=== PATIENT | male | born 1960 | race Caucasian/White ===

== ENCOUNTER → 2016-12-26 | Outpatient (CLI) | payer SELFPAY ==
[~2016-12-26] MED LIST: LEVAQUIN500 M2 PO; LEVOFLOXACIN500 MG PO; METOPROLOL SUCC50 M1 PO; METOPROLOL SUCC50 M2 PO; TRIMOX,POL250 MG/5 M PO
--- NOTE | ~2016-12-26 | PR ---
[place], [place] PROGRESS NOTE NAME: BRUNA BLANC [facility] #: [id number] UNIT #: [id number] ROOM: DOCTOR: ASTRID JefferyOLIVER BIRTHDATE: [birth year] DOS: 12/26/2016 CHIEF COMPLAINT: Bilateral leg ulcerations. HISTORY OF PRESENT ILLNESS: The location of the wounds are both of his legs, right lateral leg, right calf area as well as the left anterior leg and the left posterior leg, there is chronic erythema, chronic edema, likely venous insufficiency and probable diabetes, the wounds have been present since this summer. This patient does not have a primary care physician. Last week, he was noted to be quite hypertensive in the Wound Clinic. He was sent to the ER and apparently was asked to follow up with the primary care physician since then the patient still has not gotten to see a primary care physician. We had also wanted to order a CT angiogram of the lower extremities to evaluate for arterial insufficiency as his arterial ultrasounds were not able to be interpreted since there was too much edema. They did not visualize any of the arteries distal to the popliteal artery, so that has not been ordered yet either and we are waiting for that. He continues to have some drainage, but he still has some pain and discomfort. He is using the Tubigrip for edema control. He has had TheraHoney and he is using that. He offers no other specific complaints. He almost finished with a course of antibiotics for which he was on quinolone for bioburden. PHYSICAL EXAMINATION: VITAL SIGNS: Blood pressure is once again elevated at 180/90, pulse of 80, respirations 20, temperature 97.9. EXTREMITIES: The left lower leg wound is measuring 41 x 11 x 0.1. This is actually a circumferential measurement of small superficial clustered wounds. The wound actually is not nearly that size at all it is mostly confined to the calf. However, there is less edema overall it is slightly less erythema than before. The right lower extremity medial leg is measuring 0.6 x 1 x 0.1 and is smaller. The right lateral leg is measuring 10 x 4 x 0.2. There is still a fair amount of necrotic tissue and the wound base itself appears somewhat dry. The right posterior leg wound is measuring a little bit bigger at 5 x 5 x 0.2. Debridement was done of the right lateral leg and the right posterior leg. This is a selective debridement only as well as the left lower leg wound on the calf; however, the tissue removed was just necrotic, fibrin and slough. The patient does not tolerate debridement very well, so the debridement was aborted. ASSESSMENT AND PLAN: Chronic ulcerations, likely secondary to venous insufficiency and diabetes. He does have quite a bit of edema. We still don't have a clear idea what his vascular status is so we will go ahead and try to get that and CT angiogram ordered as soon as possible. Hopefully, then we will be able to know if we can compress him fully. I think this is definitely what he needs. If possible, he is probably diabetic; he needs to follow up with the primary care physician. He still has not made an appointment so we will have to reiterate to the patient. We did reiterate to the patient how important it is to get his blood pressure under control and to check his sugars and to have that managed because those are an integral part of wound management. In the meantime, we will use doxycycline for its anti-inflammatory purposes. The wounds appear a little bit on the dry side in general, so we will add hydrogel [place], [place] PROGRESS NOTE NAME: [facility]ANC [facility]: [id number] UNIT #: [id number] ROOM: DOCTOR: OLIVER RESENDIZ M.D. BIRTHDATE: [birth year] to help with autolytic debridement and continue with TheraHoney. The patient is to change the dressings daily and to follow up in one week. OLIVER RESENDIZ MD CM:ANDI [id number] OLIVER RESENDIZ M.D. 12/27/16 0815 interface
== END | disposition home or self-care (01) ==
LOC: WOUNDCARE 03:10
DX: I87.2 Venous insufficiency (chronic) (peripheral) (principal); L97.812 Non-pressure chronic ulcer of other part of right lower leg with fat layer exposed; L97.821 Non-pressure chronic ulcer of other part of left lower leg limited to breakdown of skin; E66.9 Obesity, unspecified

== ENCOUNTER → 2017-01-01 | Outpatient (CLI) | payer SELFPAY | END | disposition home or self-care (01) | LOC: CT 08:11 | DX: S81.802A Unspecified open wound, left lower leg, initial encounter (principal); I73.9 Peripheral vascular disease, unspecified; S81.801A Unspecified open wound, right lower leg, initial encounter; X58.XXXA Exposure to other specified factors, initial encounter; Y93.89 Activity, other specified; Y92.89 Other specified places as the place of occurrence of the external cause; Y99.8 Other external cause status; L03.116 Cellulitis of left lower limb; L03.115 Cellulitis of right lower limb ==

== ENCOUNTER → 2017-01-02 | Outpatient (CLI) | payer SELFPAY ==
--- NOTE | ~2017-01-02 | PR ---
[place], [place] PROGRESS NOTE NAME: BRUNA BLANC [facility] #: [id number] UNIT #: [id number] ROOM: DOCTOR: ASTRID JefferyOLIVER BIRTHDATE: [birth year] DOS: 01/02/2017 CHIEF COMPLAINT: Bilateral leg ulcerations. HISTORY OF PRESENT ILLNESS: The location of the wounds is both of his lower extremities, right lateral right calf area as well as a few on the right anterior leg as well. There are wounds on the left lower leg that include multiple scattered areas on the left anterior leg as well as the left calf area. There likely venous ulcers with probable diabetes associated with chronic edema and erythema. These wounds have been present since this summer. If this patient does not have a primary care physician and he does not have a way of obtaining dressings as he does not have any insurance, so the dressings that we have recommended he is unable to obtain. He was able to use some of the honey; however, he did run out of it. He comes in today without any dressings on his wounds at all. He did have his CT angiogram yesterday morning; however, we still do not have the results of this. He continues to have discomfort and pain associated with this wounds that continue to drain, but not as much drainage on the right leg. The left leg seems to be continuing to drain quite a bit. He is using Tubigrip at home for edema control and he is tolerating the oral doxycycline that we have prescribed. PHYSICAL EXAMINATION: VITAL SIGNS: Blood pressure is 160/90, pulse of 80, respirations 20, temperature 98.1. The left lower leg wound is measuring 19 x 23.1 x 0.1. This is a scattered cluster of ulcerations with no significant change in the wound appearance at this time. The right medial lower leg is measuring 1.6 x 2.3 x 0.1. There is some fibrin slough present in the base of the wound. The lateral leg wound of the right side is measuring slightly bigger at 10.3 x 6.4 x 0.2. There is a fair amount of necrotic tissue present. The posterior leg wound of the right lower leg is measuring 5 x 5.4 x 0.2, those measurements are bigger. The right lower leg midline wound is 2 x 1.7 x 0.1. This seems to be a new wound. Debridement was done of the calf wound, the lateral leg wound, right lateral leg wound and the anterior leg wound. The tissue removed was fibrin, slough and subcutaneous tissues. There was a moderate amount of bleeding that was controlled with pressure. The patient tolerated the debridement well. Cetacaine spray was used for topical anesthesia. Timeout was conducted prior to start of the procedure and the wound measurements did not change post-change, post-debridement. A swab culture was obtained of the right lateral leg wound as well since the measurements are slightly bigger. ASSESSMENT AND PLAN: Venous leg ulcerations as well as diabetic wounds. He continues to have a lot of edema. We have not been able to use a full compression bandage as we still have not had a clear idea of his vascular status. CT angiogram has been done but the report is still pending. For today, we will use manuka honey absorptive dressing that we have samples of which we can give the patient so he can use this at home as he does not have dressings and does not have a way of obtaining any dressings due to insurance purposes. He can use this in the meantime and hopefully we will be able to wrap his leg in a compression bandage early next week after we obtain the results. The culture was obtained today secondary to the wound measurements being slightly bigger. [place], [place] PROGRESS NOTE NAME: GUANACOBRUNA [facility] UNIT #: [id number] ROOM: DOCTOR: OLIVER RESENDIZ M.D. BIRTHDATE: [birth year] The overall erythema that was present when he first presented seems improved in general. His blood pressure remains uncontrolled. He is likely diabetic and will need to have this addressed when he visits his primary care doctor, so he still has not had an appointment and hopefully we will be able to get an appointment as soon as possible with the PCP. Followup is in one week. OLIVER RESENDIZ MD CM:ANDI [phone] OLIVER RESENDIZ M.D. 01/02/17 1158 interface
== END ==
LOC: WOUNDCARE 03:07
DX: E11.622 Type 2 diabetes mellitus with other skin ulcer (principal); I87.2 Venous insufficiency (chronic) (peripheral); L97.812 Non-pressure chronic ulcer of other part of right lower leg with fat layer exposed; L97.821 Non-pressure chronic ulcer of other part of left lower leg limited to breakdown of skin; E66.9 Obesity, unspecified

== ENCOUNTER → 2017-01-07 | Outpatient (CLI) | payer SELFPAY ==
--- NOTE | ~2017-01-07 | PR ---
[place], [place] PROGRESS NOTE NAME: BRUNA BLANC [facility] #: [id number] UNIT #: [id number] ROOM: DOCTOR: ASTRID JefferyOLIVER BIRTHDATE: [birth year] DOS: 01/07/2017 CHIEF COMPLAINT: The patient is here for a chief complaint of bilateral leg ulcerations. HISTORY OF PRESENT ILLNESS: The location of the wounds are the bilateral lower extremities, mostly in the right lateral calf area, left calf area and multiple ulcerations of the anterior legs bilaterally. They are venous in nature and also probably complicated by diabetes. The patient is not officially diagnosed with diabetes. He has not been to primary care physician. He is still awaiting to go and be evaluated. He has an appointment today for primary care. He was using honey to help with the wounds and then he did have a CT angiogram, which showed no significant peripheral vascular disease. He comes in today for followup routine appointment. No specific complaints. He thinks overall the drainage is slightly less. He has completed his antibiotic course. He had a recent culture which was negative. OBJECTIVE: VITAL SIGNS: As follows: Blood pressure is uncontrolled again at 180/100, pulse of 84, respirations 20, temperature 98.2. WOUND EXAM: The wounds on the left lower extremity is measuring 19 x 23 x 0.1, which actually includes multiple superficial wounds of the anterior leg as well; however, the area in the posterior calf of the left leg is looking filter cleaner in general. The wound on the anterior right lower leg is measuring slightly smaller at 1.7, x 1.6 x 0.1. There is some adherent fibrin slough present. The wound on the right lateral calf is measuring 10.2 x 4.3 x 0.2. There is still a fairly large amount of necrotic tissue present. Fibrin slough is somewhat dry at this time. The wound of the posterior calf area is measuring slightly longer at 8 x 5.2 x 0.2, it is actually a cluster of multiple wounds, so initially a lot of these areas when he first presented were covered with necrotic tissue, and now they are still have some necrotic tissue present, but they are obviously open. There is another wound on the right middle leg anteriorly, which is measuring 1 x 1.4 x 0.1. There is some fibrin slough present. Debridement was done of the right lateral wound, the right calf wound, 2 anterior wounds on the right lower extremity. Tissue removed was fibrin, slough and subcutaneous tissue. There was moderate amount of bleeding that was controlled with pressure. The patient tolerated the debridement well. Post-debridement measurements are unchanged. Cetacaine spray was used for topical anesthesia. Timeout was conducted prior to the start of the procedure. A new curette was used for the left lower extremity. In addition, I did use forceps and scissors as well. For the left lower extremity, the only wound that was debrided was the calf wound. Instrument used was a curette. Fibrin slough and subcutaneous tissue was removed and there was moderate amount of bleeding that was controlled with pressure. Post-debridement measurements are unchanged. ASSESSMENT AND PLAN: Venous stasis ulceration, we will go ahead and use Unna boots for him now that we always have a good sense of his vascular status. He is going to come back in 2 days for nursing visit to reevaluate. We are going to use Adaptic and Maxorb silver to help with antimicrobial purposes. I would like to use Santyl on this patient. He does not have insurance, so I am not [place], [place] PROGRESS [id number] UNIT #: [id number] ROOM: DOCTOR: OLIVER RESENDIZ M.D. BIRTHDATE: [birth year] sure how expensive this will be, but ideally he would benefit from this. A script was written for him. He also needs to get his blood pressure under control. He is going to follow up with his primary care physician, so hopefully that will help with some of his comorbidities. He is also has to have his sugar addressed as well. Follow up in the Wound Clinic in 2 days for nursing visit and in 1 week for wound care visit. OLIVER RESENDIZ MD CM:ANDI [phone] OLIVER RESENDIZ M.D. 01/07/178 interface
== END | disposition home or self-care (01) ==
LOC: RESCLI 04:41
DX: Z12.11 Encounter for screening for malignant neoplasm of colon (principal); I10 Essential (primary) hypertension; L03.115 Cellulitis of right lower limb; L03.116 Cellulitis of left lower limb; E66.01 Morbid (severe) obesity due to excess calories

== ENCOUNTER → 2017-01-09 | Outpatient (CLI) | payer SELFPAY | LOC: WOUNDCARE 01:29 | DX: I87.2 Venous insufficiency (chronic) (peripheral) (principal); L97.812 Non-pressure chronic ulcer of other part of right lower leg with fat layer exposed; L97.821 Non-pressure chronic ulcer of other part of left lower leg limited to breakdown of skin; E66.9 Obesity, unspecified ==

== ENCOUNTER → 2017-01-14 | Outpatient (CLI) | payer SELFPAY ==
--- NOTE | ~2017-01-14 | PR ---
[place], [place] PROGRESS NOTE NAME: BRUNA BLANC [facility] #: [id number] UNIT #: [id number] ROOM: DOCTOR: ASTRID JefferyOLIVER BIRTHDATE: [birth year] DOS: 01/14/2017 CHIEF COMPLAINT: Bilateral leg ulcerations. HISTORY OF PRESENT ILLNESS: The location of the wounds are the bilateral lower extremities, mostly in the calf and lateral areas of the legs. They are venous in nature and complicated by diabetes, although has not been officially diagnosed yet. He has had these wounds since this summer and has just started to compression therapy. He does complain of some breakthrough drainage coming from the wraps, still has some pain, but overall no other specific complaints. No fevers or chills. He was able to go to the primary care, was started on lisinopril and has followup appointment scheduled for testing and has a followup appointment with his primary care again coming up soon. OBJECTIVE: VITAL SIGNS: As follows: Blood pressure is still elevated at 170/90, pulse of 88, respirations 20, temperature is 97.6. EXTREMITIES: The wounds on the left lower leg, which were mostly scattered in the anterior surface are smaller. It was a cluster of wounds and these were just measured at 8.5 x 5.5 x 0.2. They are fairly superficial, a lot of them have some dried scabbed areas over these areas. There is another wound measuring smaller on the right medial leg, which is measuring 0.3 x 0.2 x 0.1. There is some adherent slough present. The large wound on the right lateral leg is measuring 9.3 x 5.5, but the overall appearance of the wound is definitely improving from before. The posterior calf wound is measuring 8 x 5.5 x 0.2, and is looking improved as well even though the measurements do not indicate that, the overall appearance of the wound is definitely improved. There is some maceration noted around the periwound, mostly of the left calf area. The wound on the right midline leg is measuring 0.4 x 0.9 x 0.1. A debridement was done of the right lateral leg, right calf wound and left calf wound. This is a debridement to remove fibrin, slough and subcutaneous tissue. There was a moderate amount of bleeding that was controlled with pressure. Also, of note was there was a new blister formation on the left lateral leg, which seems to be where some of the edema accumulated. It is filled with serous fluid. This was drained of serous fluid, overlying skin was left over the wound, but the fluid was drained from the area. Overall, edema is still pretty marked and present. He also has improved erythema as well. ASSESSMENT AND PLAN: Venous stasis ulcerations complicated by diabetes. Overall, the wounds look better with the wraps and I would like to continue them; however, I would like to switch from the Unna boot to the 3-layer wrap. As he did have some blister formation on the left leg I'd like to see if a 3-layer wrap will prevent this from happening. I did advise him to make sure he keeps his legs up during the day when he has breaks as much as possible. We will use the same dressing alginate silver with OptiLock to help with the maceration and have him come back for a nursing visit for wrap change later this week on . [place], [place] PROGRESS NOTE [facility]: [id number] UNIT #: [id number] ROOM: DOCTOR: OLIVER RESENDIZ M.D. BIRTHDATE: [birth year] OLIVER RESENDIZ MD CM:PNTRANS [id number] OLIVER RESENDIZ M.D. 01/15/17 1511 interface
== END ==
LOC: WOUNDCARE 03:12
DX: E11.622 Type 2 diabetes mellitus with other skin ulcer (principal); I87.2 Venous insufficiency (chronic) (peripheral); L97.812 Non-pressure chronic ulcer of other part of right lower leg with fat layer exposed; L97.821 Non-pressure chronic ulcer of other part of left lower leg limited to breakdown of skin; E66.9 Obesity, unspecified

== ENCOUNTER → 2017-01-17 | Outpatient (CLI) | payer SELFPAY | LOC: WOUNDCARE 02:41 | DX: I87.2 Venous insufficiency (chronic) (peripheral) (principal); L97.812 Non-pressure chronic ulcer of other part of right lower leg with fat layer exposed; L97.821 Non-pressure chronic ulcer of other part of left lower leg limited to breakdown of skin; E66.9 Obesity, unspecified ==

== ENCOUNTER → 2017-01-21 | Outpatient (CLI) | payer SELFPAY ==
--- NOTE | ~2017-01-21 | PR ---
[place], [place] PROGRESS NOTE NAME: BRUNA BLANC [facility] #: [id number] UNIT #: [id number] ROOM: DOCTOR: ASTRID JefferyOLIVER BIRTHDATE: [birth year] DOS: 01/21/2017 CHIEF COMPLAINT: Bilateral leg ulcerations. HISTORY OF PRESENT ILLNESS: The location of the wounds is the bilateral lower extremities mostly in the calf and lateral areas of the legs. They are venous in nature, complicated by diabetes. He has not been officially diagnosed yet. He has not had a primary care physician until just recently. We have been wrapping him in 3-layer wraps and he has been tolerating them fairly well. He has no specific complaints. He does get occasional pain and discomfort but overall the pain is much improved. PHYSICAL EXAMINATION: VITAL SIGNS: As follows: Blood pressure is still elevated at 180/96, pulse of 88, respirations 20, temperature is 99.1. WOUND EXAMINATION: The wound on the left lower leg calf area is definitely improving and it is still measuring large 7.7 x 3.2 x 0.2, but overall has improved quite a bit. There is quite a bit of epithelialization. There is still some slight maceration on the periwound area. Overall, much less necrotic tissue present and it looks good. The wound #2 is essentially healed, 0.1 x 0.1 x 0.1. Wound #3 is measuring smaller at 9 x 3.8 x 0.2 and it is definitely improved and the width is quite a bit. There is minimal fibrin slough present. Overall, there is no cellulitis. The wound on the posterior calf is measuring 8 x 5.5 x 0.2, but it is definitely improving. There is a lot of epithelialization within that wound. There is minimal fibrin and slough present. Wound #5 is also appearing healed at 0.1 x 0.1 x 0.1. A debridement was done of the right leg wounds, the right calf and the right lateral leg wound, the larger wound. This was accomplished with a curette. Tissue removed was fibrin, slough and subcutaneous tissue. There was a moderate amount of bleeding that was controlled with pressure. The patient tolerated debridement well. Post-debridement measurements are unchanged. Cetacaine spray was used for topical anesthesia. ASSESSMENT AND PLAN: Venous stasis ulcerations complicated by diabetes. He has been definitely improving with compression therapy. We will use the same dressing as before, which is Adaptic, Maxorb, OptiLock and a 3-layer wrap. He will take the dressing off in 4 days and we will do the dressing at home. He will use Adaptic, 4 x 4s and Nasreen for the left leg and Tubigrip for edema control and for the right leg a sample of nonadherent Silvercel was given that should cover all the wound bases for him and some 4 x 4s and Nasreen and Tubigrip. He is going to use that dressing at home, but I would like him to keep the same dressing that we have been using at least for 4 days if possible for now as he does seem to be responding. Unfortunately, we are unable to bring him in for a nursing visit later this week due to staffing issues so the patient will follow up next week with me in the Wound Clinic. [place], [place] PROGRESS NOTE NAME: GUANACOBRUNA UNIT #: [id number] ROOM: DOCTOR: OLIVER RESENDIZ M.D. BIRTHDATE: [birth year] OLIVER RESENDIZ MD CM:ANDI [id number] OLIVER RESENDIZ M.D. 01/22/17 0603 interface
== END ==
LOC: WOUNDCARE 02:09
DX: E11.622 Type 2 diabetes mellitus with other skin ulcer (principal); I87.2 Venous insufficiency (chronic) (peripheral); L97.812 Non-pressure chronic ulcer of other part of right lower leg with fat layer exposed; L97.821 Non-pressure chronic ulcer of other part of left lower leg limited to breakdown of skin; E66.9 Obesity, unspecified

== ENCOUNTER → 2017-01-21 | Outpatient (CLI) | payer SELFPAY ==
[2017-01-21 09:46] LABS: BASO # 0.1 10*3/uL (0.0-0.1); BASO % 0.7 % (0.0-1.0); EOS # 0.3 10*3/uL (0.0-0.4); EOS % 3.1 % (1.0-4.0); HEMATOCRIT 46.7 % (42.0-52.0); HEMOGLOBIN 15.2 g/dl (14.0-18.0); LYMPH # 1.6 10*3/uL (1.3-4.4); LYMPH % 19.5 % (27.0-41.0); MEAN CELL VOLUME 84.8 fl (80.0-94.0); MEAN CORPUSCULAR HGB 27.6 pg (27.0-31.0); MEAN CORPUSCULAR HGB CONC 32.5 g/dl (33.0-37.0); MEAN PLATELET VOLUME 9.6 fl (9.6-12.3); MONO # 0.5 10*3/uL (0.1-1.0); NEUT # 5.7 10*3/uL (2.3-7.9); NEUT % 70.3 % (47.0-73.0); PLATELET COUNT AUTOMATED 219 10*3/uL (130-400); RED BLOOD COUNT 5.51 10*6/uL (4.50-5.90); RED CELL DISTRI WIDTH 13.5 % (0-14.5)
[2017-01-21 10:15] LABS: HEMOGLOBIN A1c 6.5 % (4.8-5.6)
[2017-01-21 10:29] LABS: ALBUMIN 3.2 gm/dl (3.1-4.5); ALKALINE PHOSPHATASE 78 U/L (45-117); BILIRUBIN, TOTAL 0.3 mg/dl (0.2-1.0); BUN 15 mg/dl (7-24); CARBON DIOXIDE 29 mmol/L (21-32); CHLORIDE 104 mmol/L (98-107); CHOLESTEROL 133 mg/dL (<200); EST GLOM FILT AFRICAN AMERICAN > 60 ml/min; GLUCOSE 105 mg/dL (65-99); HDL CHOLESTEROL 44 mg/dl (40-60); LDL CHOLESTEROL 62 mg/dL (9-159); SGOT/AST 25 IU/L (3-35); SGPT/ALT 32 U/L (12-78); SODIUM 139 mmol/L (136-145); TOTAL PROTEIN 7.5 gm/dL (6.4-8.2); TRIGLYCERIDES 134 mg/dl (<150); VLDL CHOLESTEROL 27 mg/dL (6-40)
== END | disposition home or self-care (01) ==
LOC: CARD 09:30 → LAB 09:31
PROVIDERS: Internal Medicine
DX: Z12.5 Encounter for screening for malignant neoplasm of prostate (principal); I10 Essential (primary) hypertension; E66.01 Morbid (severe) obesity due to excess calories

== ENCOUNTER → 2017-01-28 | Outpatient (CLI) | payer SELFPAY ==
[~2017-01-28] MED LIST changes: +LISINOPRIL20 MG PO; +MOTRIN IB200 M1 PO
== END | disposition home or self-care (01) ==
LOC: RESCLI 02:49
DX: I10 Essential (primary) hypertension (principal); E66.01 Morbid (severe) obesity due to excess calories; R73.09 Other abnormal glucose; E83.51 Hypocalcemia; L03.119 Cellulitis of unspecified part of limb; Z68.42 Body mass index [BMI] 45.0-49.9, adult

== ENCOUNTER → 2017-01-31 | Outpatient (CLI) | payer SELFPAY ==
--- NOTE | ~2017-01-31 | PR ---
[place], [place] PROGRESS NOTE NAME: BRUNA BLANC [facility] #: [id number] UNIT #: [id number] ROOM: DOCTOR: ASTRID JefferyOLIVER BIRTHDATE: [birth year] DOS: 01/31/2017 CHIEF COMPLAINT: Bilateral leg ulcerations. HISTORY OF PRESENT ILLNESS: The locations of the wounds are bilateral lower extremities, mostly in the calf area and lateral areas of the legs. They are venous in nature, complicated by probable early diabetes, which has not been officially diagnosed yet. He has uncontrolled hypertension, which has been chronic and ongoing. He states he was started on some new medications for his blood pressure and his blood pressure has been uncontrolled. He will be starting the new medication later this week on Saturday. He was seen last week and I was quite pleased with the way his wounds were looking. They were definitely improving and getting smaller. Edema was improving with the wrap. We did a 3-layer wrap on him again and he was to take it off at home and put dressings on at home; however, he says he ran out dressings. He said when he took the wraps off, he had noticed some blistering on his legs and his wound got bigger, more painful. They are not draining an excessive amount, but they are definitely uncomfortable and with a burning, stinging sensation. He has no fevers or chills and is currently not on any antibiotics. PHYSICAL EXAMINATION: VITAL SIGNS: His temperature is 98.2, pulse of 94, respirations 20, blood pressure is 188/108. EXTREMITIES: The wounds are measuring bigger. Unfortunately, the wound on the left leg calf area is measuring 12.5 x 6 x 0.1. There are new areas of breakdown. It looks somewhat dry. There is some adherent slough and necrotic tissue present. The wound on the right medial leg remains healed at 0.1 x 0.1 x 0.1. The wound on the right lateral leg is measuring 8 x 4 x 0.2. There is a large amount of fibrin slough present dry, a very dry. The wound on the right posterior area is large again at 15 x 7.5 x 0.2. The patient refused for me to do any debridement today. He says it is too tender and painful. I was able to get a swab culture of one of the wounds. We will send it for culture. A repeat blood pressure check was done, was 188/96. ASSESSMENT AND PLAN: Chronic venous stasis ulcerations, which are worse now. Edema is uncontrolled. The wounds were doing quite well. The last time I saw him, he is out of dressings. He has not been putting anything on the wounds at this time. They are dry with necrotic tissue. I ideally would like to use Santyl on them; however, he is unable to get this. We will go back to [place] and start back with that as a debrider. Culture was taken. We will put him on empiric antibiotics. There does not appear to be overt cellulitis. He has chronic erythema, but with this complaints of increased pain, I would like to go ahead and treat this with an antibiotic to hopefully prevent this from getting worse. We will use Honey 4 x 4s, Kerlix, and Coban for compression, hopefully we will be able to get this stabilized and get him into another compression wrap soon, which is really what seem to be helping him and that is what he was responding well to. His blood pressure remained uncontrolled. I spoke with the resident, Dr. West, and the patient is asymptomatic at this time from hypertension. He has had ongoing blood pressure issue since he is first started at the clinic. He is going to be changing to a [place], [place] PROGRESS NOTE NAME: BRUNA BLANC [facility] #: [id number] UNIT #: [id number] ROOM: DOCTOR: OLIVER RESENDIZ M.D. BIRTHDATE: [birth year] new medicine soon and I did inform the resident about this and his suggestion was as long as he is asymptomatic, just to continue with the current plan. I would like the patient to see me on Saturday again to further evaluate his legs and to see how he is responding. OLIVER RESENDIZ MD CM:PNTRANS [phone] OLIVER RESENDIZ M.D. 02/01/17 1129 interface
== END ==
LOC: WOUNDCARE 01:28
DX: I87.2 Venous insufficiency (chronic) (peripheral) (principal); L97.812 Non-pressure chronic ulcer of other part of right lower leg with fat layer exposed; L97.822 Non-pressure chronic ulcer of other part of left lower leg with fat layer exposed; E66.9 Obesity, unspecified; I10 Essential (primary) hypertension

== ENCOUNTER → 2017-02-01 | Day surgery (SDC) | payer SELFPAY ==
[~2017-02-01] VITALS: Ht 185.4 cm; Wt 129.3 kg
--- NOTE | ~2017-02-01 | PROC NOTE ---
[place], [place] PROCEDURE NOTE NAME: BRUNA BLANC [facility] #: [id number] UNIT #: [id number] ROOM: DOCTOR: ED RIOS MD BIRTHDATE: [birth year] DATE: 02/01/17 PREOPERATIVE DIAGNOSIS: Screening examination. POSTOPERATIVE DIAGNOSIS: Screening examination. PROCEDURE: Colonoscopy. ENDOSCOPIST: Ed Rios MD. ADMISSIONS EVALUATOR: PGY1. ANESTHESIA: MAC. INDICATIONS: This is a 57-year-old gentleman who is here for a screening examination. The procedure and its complications explained to the patient in detail preoperatively. Complications that were discussed included but were not limited to bleeding, missed lesions, and colon perforation. He agreed to proceed. DESCRIPTION OF PROCEDURE: After identifying the patient, the patient was brought to the endoscopy suite and laid in the left lateral position. After a time-out procedure was called, IV sedation was administered and a digital rectal exam was performed. This was within normal limits. An adult colonoscope was now introduced into the anal canal and advanced sequentially into the rectum, sigmoid colon, descending colon, transverse colon, and ascending colon up to the cecum. Upon reaching the cecum, the scope was withdrawn. Total withdrawal time was approximately 6-1/2 minutes. There were no obvious lesions that were identified. Upon retroflexion of the scope in the rectum, there was found to be internal hemorrhoids, which were not complicated. After the scope was withdrawn, the patient was taken to the recovery room in a stable fashion. There were no complications. Dr. Ed Rios, the attending endoscopist, was present throughout the operating case. Based on these findings, the patient is recommended to have another colonoscopy in 10 years or sooner if he develops any new symptoms. These findings will be discussed with the patient when he sees me in my office in 2 weeks. ED RIOS MD CM:PROCNOTE:PROCEDURE NOTE [id number] ED RIOS MD
[2017-02-01 07:00] VITALS: BP 170/100
[2017-02-01 07:50] VITALS: BP 153/75
[2017-02-01 08:04] VITALS: BP 156/85
[2017-02-01 08:17] VITALS: BP 153/79
== END | disposition home or self-care (01) ==
LOC: SDC 01-28 10:15
DX: Z12.11 Encounter for screening for malignant neoplasm of colon (principal); K64.8 Other hemorrhoids; I10 Essential (primary) hypertension; Z87.891 Personal history of nicotine dependence; Z83.3 Family history of diabetes mellitus; Z82.49 Family history of ischemic heart disease and other diseases of the circulatory system; Z80.9 Family history of malignant neoplasm, unspecified; Z98.890 Other specified postprocedural states

== ENCOUNTER → 2017-02-04 | Outpatient (CLI) | payer SELFPAY ==
--- NOTE | ~2017-02-04 | PR ---
[place], [place] PROGRESS NOTE NAME: [facility]UNA BLANC [facility] #: [id number] UNIT #: [id number] ROOM: DOCTOR: ASTRID JefferyOLIVER BIRTHDATE: [birth year] DOS: 02/04/2017 CHIEF COMPLAINT: Bilateral leg ulcerations. HISTORY OF PRESENT ILLNESS: The location of the wounds of the bilateral lower extremities, mostly in the calf areas and the lateral areas of the legs. They are venous in nature, complicated by early diabetes, which is diet controlled, chronic leg edema and contributing factors are unable to keep the wounds covered with dressings as the patient is unable to afford dressings and he keep his wounds open to air when he runs out of dressings which is quite frequently. He was seen last week and at that time, he had increased pain, redness, and discomfort with the wounds draining and had difficulty tolerating any debridement. TheraHoney was prescribed. Cultures were taken, growing Staph aureus moderate amount susceptible to quinolones and the patient is on quinolone which was prescribed last week. He is tolerating the antibiotics well without any specific complaints. He came in today without a dressing, wounds were open and dry. OBJECTIVE: VITAL SIGNS: Temp 97.8, pulse of 96, respirations 20, blood pressure is 164/110. He has had uncontrolled hypertension for quite some time now and has started a new blood pressure medication. His wound on the left lower extremity is measuring 16 x 6 x 0.1. It is a cluster of multiple wounds now, which is mostly located on the back side of the calf. There are fairly dry and starting to scab over at this time. Wound #2 is located on the anterior leg it is measuring 1.1 x 1.1 x 0.1, it does not appear open. The wound on the right calf area and lateral side of the leg is measuring 16 x 10 x 0.1; however, these measurements are including several areas around that and it is a large cluster of wounds. There is a fair amount of dried adherent slough present in the base of the wound. The edema seems stable. The redness is chronic, but improved from last time I saw him. There is no purulence at this time. Debridement was done of the larger wound on the right calf area. Cetacaine spray was used for topical anesthesia. Timeout was conducted prior to the start of the procedure. Curette, forceps and scissors were utilized to remove fibrin, slough and subcutaneous tissue. There was a moderate amount of bleeding. Post-debridement measurements are unchanged. Bleeding was controlled with pressure. The patient tolerated the procedure well. ASSESSMENT AND PLAN: Chronic venous ulcerations which have worsened recently as the patient had taken off the wraps and kept the wounds open and dry without any dressing material. He was started on antibiotics empirically. This seems to have stabilized a lot of the pain and redness associated with the wounds, it does appear stable today. He continues to have a fair amount of adherent dried slough on the wound base, we will continue with TheraHoney use Adaptic secondary to prevent sticking of the dressings to the wound and a 3-layer wrap have the patient come back on for a wrap change. He is going to try and elevate his legs as much as possible. His blood pressure remains uncontrolled. We will recheck it today before he leaves. He was started on a new medication. This Saturday was the first time he started taking it and he will follow up with his PCP 02/11/2017. [place], [place] PROGRESS NOTE NAME: [facility]NA[facility]UNA [facility] UNIT #: [id number] ROOM: DOCTOR: OLIVER RESENDIZ M.D. BIRTHDATE: [birth year] OLIVER RESENDIZ MD CM:ANDI [id number] OLIVER RESENDIZ M.D. 02/04/17 1026 interface
== END ==
LOC: WOUNDCARE 02:05
DX: I87.2 Venous insufficiency (chronic) (peripheral) (principal); E11.622 Type 2 diabetes mellitus with other skin ulcer; L97.812 Non-pressure chronic ulcer of other part of right lower leg with fat layer exposed; L97.822 Non-pressure chronic ulcer of other part of left lower leg with fat layer exposed; E66.9 Obesity, unspecified; I10 Essential (primary) hypertension

== ENCOUNTER → 2017-02-07 | Outpatient (CLI) | payer SELFPAY | LOC: WOUNDCARE 02:43 | DX: I87.2 Venous insufficiency (chronic) (peripheral) (principal); L97.812 Non-pressure chronic ulcer of other part of right lower leg with fat layer exposed; L97.821 Non-pressure chronic ulcer of other part of left lower leg limited to breakdown of skin; E66.9 Obesity, unspecified ==

== ENCOUNTER → 2017-02-11 | Outpatient (CLI) | payer SELFPAY | END | disposition home or self-care (01) | LOC: RESCLI 00:41 | DX: E11.9 Type 2 diabetes mellitus without complications (principal); I10 Essential (primary) hypertension; E66.01 Morbid (severe) obesity due to excess calories; I87.2 Venous insufficiency (chronic) (peripheral) ==

== ENCOUNTER → 2017-02-11 | Outpatient (CLI) | payer SELFPAY ==
--- NOTE | ~2017-02-11 | PR ---
[place], [place] PROGRESS NOTE NAME: BRUNA BLANC [facility] #: [id number] UNIT #: [id number] ROOM: DOCTOR: ASTRID JefferyOLIVER BIRTHDATE: [birth year] DOS: 02/11/2017 CHIEF COMPLAINT: Bilateral leg ulcerations. HISTORY OF PRESENT ILLNESS: The location of the wounds are the bilateral lower extremities, mostly in the calf and lateral areas of the legs. They are venous in nature, complicated by early diabetes, which at this point is diet controlled; chronic leg edema, previous contributing factors are the patient was unable to afford dressings and despite recommendations to keep them covered, he left them opened to air on multiple occasions. The wounds were quite large and chronic and have been present since the summer time. He was kept on TheraHoney for a while to help debride the wounds and he has been tolerating compression therapy without any new specific complaints. He is going to see his primary care doctor for further blood pressure management. His blood pressure remains elevated. PHYSICAL EXAMINATION: VITAL SIGNS: Today shows temp of 98.4, pulse of 98, respirations 20, blood pressure is 164/98. WOUND EXAMINATION: The wraps were removed. The wounds are measuring 15 x 9 x 0.1 that is actually a clustered area of wounds. Several of the wounds have dried, necrotic hyperkeratotic tissue around them, so the actual measurements of open areas are not known. Those are the areas of where the wounds were, but lot of that is actually crusted over with hyperkeratotic tissue. Wound #2 has healed 0.1 x 0.1 x 0.1 on the right leg and then there is a wound #3 which is located on the right calf and is measuring about the same at 15 x 10 x 0.1, but with those measurements there is quite a bit of epithelialization scattered throughout the clustered wound margin. The left leg was selectively debrided. The only tissue removed was nonviable hyperkeratotic tissue with forceps and scissors and a curette was also used to remove some fibrin slough on the anterior portion of the wound where there was [id number] amount of bleeding that was controlled with pressure. Post-debridement measurements are unchanged. The right lower extremity wound was removed. The tissue removed was nonviable hyperkeratotic tissue as well as subcutaneous tissue, fibrin and slough. There was moderate amount of bleeding that was controlled with pressure. Post-debridement measurements are unchanged. Edema is well controlled. Overall, there is no active cellulitis. ASSESSMENT AND PLAN: Chronic venous insufficiency. He continues to do well with the wraps. The wounds are improving in general, even though measurements may not signify this, there is a lot of epithelialization to those margins. Post-debridement measurements of the wound on the left leg was actually quite a bit smaller at 5.2 x 9 x 0.1 post-debridement measurements. We will continue compression management. We will use Adaptic and Maxorb, have him follow up in 3 days for a nursing visit and dressing change. He is to follow up with his primary care doctor for his uncontrolled hypertension. This is to be done today. [place], [place] PROGRESS NOTE NAME: GUANACOBRUNA [facility] #: [id number] UNIT #: [id number] ROOM: DOCTOR: OLIVER RESENDIZ M.D. BIRTHDATE: [birth year] OLIVER RESENDIZ MD CM:ANDI [id number] OLIVER RESENDIZ M.D. 02/12/17 020 interface
== END ==
LOC: WOUNDCARE 00:51
DX: I87.2 Venous insufficiency (chronic) (peripheral) (principal); E11.622 Type 2 diabetes mellitus with other skin ulcer; L97.812 Non-pressure chronic ulcer of other part of right lower leg with fat layer exposed; L97.821 Non-pressure chronic ulcer of other part of left lower leg limited to breakdown of skin; E66.9 Obesity, unspecified; I10 Essential (primary) hypertension

== ENCOUNTER → 2017-02-14 | Outpatient (CLI) | payer SELFPAY ==
--- NOTE | ~2017-02-14 | PR ---
[place], [place] PROGRESS NOTE NAME: BRUNA BLANC [facility] #: [id number] UNIT #: [id number] ROOM: DOCTOR: ASTRID JefferyOLIVER BIRTHDATE: [birth year] DOS: 02/14/2017 CHIEF COMPLAINT: Multiple chronic ulcers of the lower extremities. HISTORY OF PRESENT ILLNESS: This is a 57-year-old male with chronic ulcers of the legs since the summertime, who has been coming to the wound clinic now for 10 weeks. He has venous ulcerations and problems with severe edema. He has difficulty obtaining dressing materials in the past, which have worsened his wounds a great deal. He is now tolerating compression therapy with the wound steadily improving; however, he has had recurrent blistering underneath the wraps off and on with the compression therapy, but that seemed to heal fairly quickly once drained. They are filled with serous fluid, so that has been an ongoing recurrent problem, but otherwise he was coming in for a nursing visit today for compression bandage change; however, it was noted that he had blistering, fairly large blisters on the left leg that were new, so he was changed to a wound care visit and that is why I am seeing him. PHYSICAL EXAMINATION: His vital signs are stable. Temperature is 98.2, pulse of 90, respirations 20, blood pressure is 120/88. The wounds on the left leg are being measured as circumferential wound of 9.4 x 11 x 0.1; however, the actual wounds on the back of the calf that we were dealing with seemed to have healed with compression. They look very good. However, he has a few blisters, actually several blisters on the lateral side as well as the anterior legs that are filled with serum. A #15 blade was utilized to drain 2 to 3 of the blisters, they were not unroofed, they were just drained. The right lower leg wound is measuring 15 x 9.1 x 0.1 and looks really good in comparison to the last couple of weeks. It is definitely improving with therapy. The edema is much improved. The erythema is much improved, so we will continue with compression. He does have some slight maceration around the distal ankle area, but otherwise the wounds are looking very good. No debridement was done on the right leg. ASSESSMENT AND PLAN: Venous ulceration, which are responding to compression therapy very well. However, he does have some issues with recurrent blistering under the compression wraps. It is not clear to me why this is. If this is continued venous insufficiency that is leading up to the blisters or something from the wraps; however, I do not want to discontinue the wraps as the wounds are definitely improving with them. We will continue with compression therapy, Adaptic and Maxorb and have him follow back up on Saturday for a wound clinic visit. Also, we have been using a 3-layer wrap, but however, we do not have that available today, so we will go with the Unna boot instead. Perhaps, he will respond a little bit better with this rather than 3 layers. So, we will go ahead and do that and have him follow up next Saturday. [place], [place] PROGRESS NOTE NAME: GUANACOBRUNA UNIT #: [id number] ROOM: DOCTOR: OLIVER RESENDIZ M.D. BIRTHDATE: [birth year] OLIVER RESENDIZ MD CM:ANDI [id number] OLIVER RESENDIZ M.D. 02/15/17 0946 interface
== END ==
LOC: WOUNDCARE 02:42
DX: I87.2 Venous insufficiency (chronic) (peripheral) (principal); L97.812 Non-pressure chronic ulcer of other part of right lower leg with fat layer exposed; L97.821 Non-pressure chronic ulcer of other part of left lower leg limited to breakdown of skin; E66.9 Obesity, unspecified

== ENCOUNTER → 2017-02-18 | Outpatient (CLI) | payer SELFPAY ==
[~2017-02-18] MED LIST changes: +HYDROCHLOROTHIA25 M1 PO; +LISINOPRIL40 MG PO; +METFOMIN HYDRO850 MG PO; +METFORMIN500 MG PO; +VITAMIN D1000 IU PO
--- NOTE | ~2017-02-18 | PR ---
[place], [place] PROGRESS NOTE NAME: BRUNA BLANC [facility] #: [id number] UNIT #: [id number] ROOM: DOCTOR: ASTRID JefferyOLIVER BIRTHDATE: [birth year] DOS: 02/18/2017 CHIEF COMPLAINT: Followup of bilateral leg ulceration. HISTORY OF PRESENT ILLNESS: The location of the wounds of the bilateral lower extremities, mostly in the calf and lateral areas of the leg, they are venous in nature, complicated by diabetes, which he was just started on oral anti-hypoglycemic agents, chronic leg edema with problems in the past affording dressings, so he would leave the wounds open chronically and recurrently which would worsen the wounds quite significantly. He has been on Unna boots now. We had used a 3-layer wrap last week, but due to the presence of blistering underneath the wrap. We decided to go back to Unna boot, he had been on that before, did have problems with some blistering at that time too, which I suspect is likely from some of the edema being slightly unevenly distributed, but overall the appearance of his legs is definitely improved with Compression. He has no specific complaints. Vitals are stable. He is doing fairly well with compression at this time. OBJECTIVE: VITAL SIGNS: He is afebrile, pulse of 90, respirations 20; blood pressure is 130/84. EXTREMITIES: The left lower leg wound is definitely improved. The wounds on the calf are healed. He has had some blistering of the lateral and the anterior leg from the wraps which we are including in the measurements at this time, but it seems to have already epithelialized. So the measurements on the left leg are 8.5 x 11 x 0.1. Those include the blistering areas that were present last week, but they look stable and they already appear epithelialized the right lower leg wound. The only place that open is the lateral part right now and that is definitely improving and is measuring 7.1 x 2.2 x 0.1. There is some fibrin slough present in the base of the wound. A debridement was done today. The tissue removed was fibrin, slough and subcutaneous tissue. There was a moderate amount of bleeding that was controlled with pressure. Post-debridement measurements are unchanged. The patient tolerated the debridement well. A curette was utilized and Cetacaine spray was used for topical anesthesia. ASSESSMENT AND PLAN: Recurrent venous leg ulcers, which are improving in general. A great deal with compression therapy and wound care. We will continue with the current dressings which is the Maxorb silver Adaptic and Unna boots and have him follow back up on later or Saturday. We do need to see him twice a week at least as he has had problems with some blistering underneath the wraps. Otherwise, if that was not an issue. He could stay for a wrap with one week; however, due to his problem with the wraps on occasion. We feel that it is necessary to have him come back within the same week. Followup and wound care in 1 week. Nursing visit later this week. ADDENDUM I did trim some calluses of the bottom of his feet today with a #15 blade. There was no bleeding and the patient tolerated it well. [place], [place] PROGRESS NOTE NAME: GUANACOBRUNA [facility] UNIT #: [id number] ROOM: DOCTOR: OLIVER RESENDIZ M.D. BIRTHDATE: [birth year] OLIVER RESENDIZ MD CM:ANDI [id number] OLIVER RESENDIZ M.D. 02/19/17 0729 interface
--- NOTE | ~2017-02-18 | PR ---
[place], [place] PROGRESS NOTE NAME: BRUNA BLANC [facility] #: [id number] UNIT #: [id number] ROOM: DOCTOR: OLIVER RESENDIZ M.D. BIRTHDATE: [birth year] DOS: 02/18/2017 ADDENDUM I wanted to mention that I trimmed 3 of the calluses on the bottom of his feet. They were on the bilateral feet. There were no open ulcers underneath it. There was no bleeding and the patient tolerated it well. OLIVER RESENDIZ MD CM:ANDI [id number] OLIVER RESENDIZ M.D. 02/25/17 0718 interface
== END ==
LOC: WOUNDCARE 01:10
DX: E11.622 Type 2 diabetes mellitus with other skin ulcer (principal); I87.2 Venous insufficiency (chronic) (peripheral); L97.812 Non-pressure chronic ulcer of other part of right lower leg with fat layer exposed; L97.822 Non-pressure chronic ulcer of other part of left lower leg with fat layer exposed; I48.91 Unspecified atrial fibrillation; L84 Corns and callosities; M79.672 Pain in left foot; M79.671 Pain in right foot

== ENCOUNTER 2017-02-25 14:59 | Inpatient (IN) | payer SELFPAY ==
[~2017-02-25] VITALS: Ht 185.4 cm; Wt 145.7 kg
[~2017-02-25 14:59] MED LIST changes: -HYDROCHLOROTHIA25 M1 PO; -LISINOPRIL40 MG PO; -METFOMIN HYDRO850 MG PO; -METFORMIN500 MG PO; -VITAMIN D1000 IU PO
[2017-02-25 15:12] VITALS: BP 152/74
[2017-02-25] MEDS ORDERED: METFOMIN HYDRO850 MG PO (15:13)
[2017-02-25] MEDS ORDERED: HYDROCHLOROTHIA25 M1 PO (15:13)
[2017-02-25] MEDS ORDERED: LISINOPRIL40 MG PO (15:13)
[2017-02-25 16:10] LABS: BASO # 0.1 10*3/uL (0.0-0.1); EOS # 0.2 10*3/uL (0.0-0.4); EOS % 2.5 % (1.0-4.0); HEMATOCRIT 46.7 % (42.0-52.0); HEMOGLOBIN 15.4 g/dl (14.0-18.0); LYMPH # 1.9 10*3/uL (1.3-4.4); MEAN CORPUSCULAR HGB 27.7 pg (27.0-31.0); MEAN PLATELET VOLUME 9.7 fl (9.6-12.3); MONO # 0.8 10*3/uL (0.1-1.0); MONO % 8.6 % (3.0-9.0); NEUT # 6.1 10*3/uL (2.3-7.9); NEUT % 66.7 % (47.0-73.0); PLATELET COUNT AUTOMATED 238 10*3/uL (130-400); RED BLOOD COUNT 5.56 10*6/uL (4.50-5.90); RED CELL DISTRI WIDTH 13.1 % (0-14.5); WHITE BLOOD COUNT 9.2 10*3/uL (4.8-10.8)
[2017-02-25 16:30] VITALS: BP 134/81
[2017-02-25 17:30] VITALS: BP 137/69
[2017-02-25 20:00] VITALS: BP 121/77
[2017-02-26] VITALS: BP 126/73
[2017-02-26 06:41] LABS: BASO # 0.1 10*3/uL (0.0-0.1); EOS # 0.3 10*3/uL (0.0-0.4); EOS % 4.6 % (1.0-4.0); HEMATOCRIT 47.5 % (42.0-52.0); HEMOGLOBIN 15.2 g/dl (14.0-18.0); LYMPH # 2.2 10*3/uL (1.3-4.4); LYMPH % 32.2 % (27.0-41.0); MEAN CELL VOLUME 85.3 fl (80.0-94.0); MEAN CORPUSCULAR HGB 27.3 pg (27.0-31.0); MEAN PLATELET VOLUME 10.2 fl (9.6-12.3); MONO # 0.5 10*3/uL (0.1-1.0); MONO % 6.9 % (3.0-9.0); NEUT # 3.8 10*3/uL (2.3-7.9); NEUT % 55.2 % (47.0-73.0); PLATELET COUNT AUTOMATED 196 10*3/uL (130-400); RED BLOOD COUNT 5.57 10*6/uL (4.50-5.90); RED CELL DISTRI WIDTH 13.2 % (0-14.5); WHITE BLOOD COUNT 6.8 10*3/uL (4.8-10.8)
[2017-02-26 07:00] VITALS: BP 158/76
[2017-02-26 07:16] LABS: BUN 23 mg/dl (7-24); CARBON DIOXIDE 29 mmol/L (21-32); CHLORIDE 102 mmol/L (98-107); EST GLOM FILT AFRICAN AMERICAN > 60 ml/min; FREE T4 1.21 ng/dl (0.76-1.46); GLUCOSE 104 mg/dL (65-99); MAGNESIUM 2.3 mg/dL (1.5-2.1); POTASSIUM 4.1 mmol/L (3.5-5.1); SODIUM 139 mmol/L (136-145)
[2017-02-26 07:19] LABS: PROTHROMBIN TIME 10.8 SECONDS (9.0-12.4)
[2017-02-26 07:39] LABS: FOLIC ACID 11.88 ng/mL (>5.38); VITAMIN D, 25-HYDROXY 11.9 ng/mL (30-100)
[2017-02-26 08:00] VITALS: BP 153/82
[2017-02-26] MEDS ORDERED: METFORMIN500 MG PO (09:26)
[2017-02-26] MEDS ORDERED: VITAMIN D1000 IU PO (09:27)
== END 2017-02-26 11:24 | disposition home or self-care (01) | DRG 683 ==
LOC: EDSTATUS 14:59 → ED 15:00 → EDHOLD 15:44 → 5E 15:58
PROVIDERS: Internal Medicine Hospice and Palliative Medicine; Student in an Organized Health Care Education/Training Program
DX: N17.0 Acute kidney failure with tubular necrosis (principal); E44.0 Moderate protein-calorie malnutrition; E66.01 Morbid (severe) obesity due to excess calories; E11.65 Type 2 diabetes mellitus with hyperglycemia; E86.0 Dehydration; I83.009 Varicose veins of unspecified lower extremity with ulcer of unspecified site; I10 Essential (primary) hypertension; Z80.9 Family history of malignant neoplasm, unspecified; Z90.49 Acquired absence of other specified parts of digestive tract; Z83.3 Family history of diabetes mellitus; Z82.49 Family history of ischemic heart disease and other diseases of the circulatory system; Z79.84 Long term (current) use of oral hypoglycemic drugs; Z79.4 Long term (current) use of insulin; Z79.899 Other long term (current) drug therapy; Z68.39 Body mass index [BMI] 39.0-39.9, adult

== ENCOUNTER → 2017-02-25 | Outpatient (CLI) | payer SELFPAY ==
[2017-02-25 10:45] LABS: BUN 29 mg/dl (7-24); CARBON DIOXIDE 28 mmol/L (21-32); CHLORIDE 102 mmol/L (98-107); EST GLOM FILT AFRICAN AMERICAN > 60 ml/min; GLUCOSE 120 mg/dL (65-99); POTASSIUM 4.1 mmol/L (3.5-5.1); SODIUM 137 mmol/L (136-145)
== END | disposition home or self-care (01) ==
LOC: WOUNDCARE 03:35 → LAB 03:35 → WOUNDCARE 14:00
PROVIDERS: Internal Medicine
DX: I10 Essential (primary) hypertension (principal)

== ENCOUNTER → 2017-02-28 | Outpatient (CLI) | payer SELFPAY ==
[~2017-02-28] MED LIST changes: +HYDROCHLOROTHIA25 M1 PO; +LISINOPRIL40 MG PO; +METFOMIN HYDRO850 MG PO; +METFORMIN500 MG PO; +VITAMIN D1000 IU PO
== END | disposition home or self-care (01) ==
LOC: WOUNDCARE
DX: I87.2 Venous insufficiency (chronic) (peripheral) (principal); L97.812 Non-pressure chronic ulcer of other part of right lower leg with fat layer exposed; L97.821 Non-pressure chronic ulcer of other part of left lower leg limited to breakdown of skin; E66.9 Obesity, unspecified

== ENCOUNTER → 2017-03-04 | Outpatient (CLI) | payer SELFPAY ==
--- NOTE | ~2017-03-04 | PR ---
[place], [place] PROGRESS NOTE NAME: BRUNA BLANC [facility] #: [id number] UNIT #: [id number] ROOM: DOCTOR: ASTRID JefferyOLIVER BIRTHDATE: [birth year] DOS: 03/04/2017 CHIEF COMPLAINT: The patient comes in for followup of bilateral leg ulcerations. HISTORY OF PRESENT ILLNESS: The location of the wounds are the bilateral lower extremities, mostly in the calves in the lateral areas of the leg. They are venous in nature, complicated by diabetes, morbid obesity, chronic leg edema and uncontrolled hypertension. He has difficult putting dressings on himself as he cannot afford dressings. He has been tolerating compression therapy very well at this time. His edema was very well controlled; however, about a week ago, he was admitted with dizziness and lightheadedness. His diuretics were just discontinued. He did have an elevated creatinine, and so he comes in today without taking the diuretic. Last week when he was here, his left leg wounds had healed completely. We did not have any further Unna boots available, so we used two layer Tubigrip, but since then the edema has come back quite a bit. He has had new open areas on the left leg as well. The right leg wound compression was discontinued today as was removed today for evaluation of the wound. The patient denies any specific complaints regarding the wounds at this time. PHYSICAL EXAMINATION: VITAL SIGNS: His blood pressure is markedly elevated again. Blood pressure is 178/100, pulse of 80, respirations 18, temperature is 98. GENERAL: He does not have any headache, dizziness, chest pains or shortness of breath at this time. WOUND EXAM: He has got a new wound on the left leg. It is scattered, clustered superficial areas of opening, which is measuring 4.5 x 2.8 x 0.1. There is really no necrotic tissue. It is fairly superficial. The right lower leg wound is definitely improving as well. It is measuring 4.3 x 1 x 0.1. There is no necrotic tissue, it looks good. It is healing nicely. There is good granulation tissue. The left lower leg has an anterior wound that is also open, it is measuring 3.7 x 1.2 x 0.1 that is also superficial with no visible necrotic tissue. Debridement is not done today. SOCIAL HISTORY: The patient does state that he does not exercise on a regular basis. He used to walk but has not been able to walk recently due to his problems with his legs. He does not do any type of aerobic activity. He still is employed part-time, and he does not smoke. He does take his medications on a regular basis. ASSESSMENT AND PLAN: Chronic and recurrent venous ulcerations. New wounds on the left leg secondary to uncontrolled edema. The compression bandage was discontinued. We did order him new compression stockings, but they are not available at this time. We will go back to using compression on the left leg. We do have Unna boots available, but we will use a 3-layer wrap. We will continue with Adaptic and a collagen on the right leg as well and a 3-layer compression wrap. He has an appointment today with his primary care physician. I hope to touch base with them regarding his uncontrolled hypertension and his edema. I think that he would benefit from a diuretic perhaps a lower dose, half a pill or lower every other day, perhaps may help control some of this edema as [place], [place] PROGRESS NOTE NAME: BRUNA BLANC [facility] #: [id number] UNIT #: [id number] ROOM: DOCTOR: OLIVER RESENDIZ M.D. BIRTHDATE: [birth year] his wounds and his legs appear much improved when edema is better controlled. His blood pressure is markedly elevated and uncontrolled once again, so he is going to follow up with his primary care physician this afternoon, we will try to touch base with him, and the patient has a followup nursing visit later this week for change of bandages. OLIVER RESENDIZ MD CM:PNTRANS 0 1 OLIVER RESENDIZ M.D. 03/04/17941 interface
== END | disposition home or self-care (01) ==
LOC: RESCLI 03:41
DX: E11.9 Type 2 diabetes mellitus without complications (principal); I10 Essential (primary) hypertension; I87.2 Venous insufficiency (chronic) (peripheral); E66.01 Morbid (severe) obesity due to excess calories; E55.9 Vitamin D deficiency, unspecified

== ENCOUNTER → 2017-03-07 | Outpatient (CLI) | payer SELFPAY | LOC: WOUNDCARE 03:23 | DX: I87.2 Venous insufficiency (chronic) (peripheral) (principal); L97.812 Non-pressure chronic ulcer of other part of right lower leg with fat layer exposed; L97.821 Non-pressure chronic ulcer of other part of left lower leg limited to breakdown of skin; E66.9 Obesity, unspecified ==

== ENCOUNTER → 2017-03-13 | Outpatient (CLI) | payer SELFPAY ==
--- NOTE | ~2017-03-13 | PR ---
[place], [place] PROGRESS NOTE NAME: BRUNA BLANC [facility] #: [id number] UNIT #: [id number] ROOM: DOCTOR: ASTRID JefferyOLIVER BIRTHDATE: [birth year] DOS: 03/13/2017 CHIEF COMPLAINT: Bilateral leg ulcerations. HISTORY OF PRESENT ILLNESS: The locations of the wounds are the bilateral legs, mostly calf lateral areas, lateral legs. They are venous in nature, complicated by diabetes, hypertension and chronic leg edema. The patient has difficulty affording dressings and whenever wraps are discontinued, he ends up getting recurrent wounds. We did order compression stockings, but he still has not gotten them yet. He says he had to call the company, measurements were obtained by us. He was put on a 3-layer compression wrap last week, and he has been doing quite well with it without any problems. He was noted last week to have blistering and uncontrolled hypertension and increased edema. He was seen by his primary care physician. I did discuss about starting the patient back up on a perhaps lower dose of diuretic to help control some of his edema; however, the patient says that they did not put him back on it, and his blood pressure was better when he went to see his PCP, so he is not on any diuretic. He has no other complaints at this time. PHYSICAL EXAMINATION: VITAL SIGNS: He is afebrile, pulse of 84, respirations 18, blood pressure is markedly elevated at 180/90. WOUND EXAM: Wounds on the left leg are measured at 0.1 x 0.1 x 0.1. There is a lot of dried scabbed areas for this, so it is difficult to tell right now if it is actually healed or not. The wound on the right lower leg is measuring 3.4 x 0.6 x 0.1. There is a minimal necrotic tissue present. Wound number 6 is located on the left anterior leg, and it is measuring 0.1 x 0.1 x 0.1. Debridement was done of the lateral right leg wound. Tissue removed was just a nonviable fibrin and slough and it looks very good underneath it. Forceps and scissors were utilized, and the wound looks really good. There are large amounts of epithelial tissue and a debridement was done on the left calf wound and also of that dried adherent fibrin slough was removed and the wound looks healed underneath that as well, that was also selective debridement only. ASSESSMENT AND PLAN: Chronic venous ulcerations better. Definitely the left leg looks healed at this point. The right leg is almost healed, so we will continue with compression for one more week and then likely the patient will be discharged at that point. However, his blood pressure is uncontrolled. He has been taken off of his diuretics, so unless those things are managed, it only a matter of time until these wounds reoccur. Unfortunately, I do think that he needs to manage his weight and control his blood pressure and consider venous intervention. He is awaiting to get Medicaid insurance, so hopefully that will take place soon, and he can be considered a possibility for venous ablation. In addition, he is going to need to have his compression stockings, and he is going to have to wear them on a daily basis. Follow up in the Wound Clinic in one week. [place], [place] PROGRESS NOTE [facility] [id number] UNIT #: [id number] ROOM: DOCTOR: OLIVER RESENDIZ M.D. BIRTHDATE: [birth year] OLIVER RESENDIZ MD CM:ANDI [id number] OLIVER RESENDIZ M.D. 03/14/17 0610 interface
== END ==
LOC: WOUNDCARE 03:35
DX: I87.2 Venous insufficiency (chronic) (peripheral) (principal); E11.622 Type 2 diabetes mellitus with other skin ulcer; L97.812 Non-pressure chronic ulcer of other part of right lower leg with fat layer exposed; L97.821 Non-pressure chronic ulcer of other part of left lower leg limited to breakdown of skin; E66.9 Obesity, unspecified; I10 Essential (primary) hypertension; I48.91 Unspecified atrial fibrillation

== ENCOUNTER → 2017-03-19 | Outpatient (CLI) | payer SELFPAY | END | disposition home or self-care (01) | LOC: D 02:46 | DX: E11.9 Type 2 diabetes mellitus without complications (principal) ==

== ENCOUNTER → 2017-03-20 | Outpatient (CLI) | payer SELFPAY | END | disposition home or self-care (01) | LOC: LAB 12:51 | DX: E55.9 Vitamin D deficiency, unspecified (principal) ==

== ENCOUNTER → 2017-03-20 | Outpatient (CLI) | payer SELFPAY ==
--- NOTE | ~2017-03-20 | PR ---
[place], [place] PROGRESS NOTE NAME: [facility] #: [id number] UNIT #: [id number] ROOM: DOCTOR: ASTRID Jeffery,OLIVER BIRTHDATE: [birth year] DOS: 03/20/2017 CHIEF COMPLAINT: Bilateral leg ulceration. HISTORY OF PRESENT ILLNESS: The ulcers were located in the bilateral legs, mostly in the calf area. They were venous in nature, associated with severe leg edema, hypertension and diabetes and difficulty with obtaining dressings. We put a compression bandage on him last week and he is coming here today for his followup visit. The wounds look like they were essentially almost healed last week. He comes in today without any specific complaints. He is still off of his diuretic as his PCP wanted to keep him off of it for a while to further evaluate his kidney functions. Other than that, he has no other complaints. He still has not gotten his compression stockings yet that we had recommended on multiple occasions. PHYSICAL EXAMINATION: VITAL SIGNS: As follows; he has no other specific complaints, temperature is 98.5, pulse of 80, respirations 18, blood pressure is 170/94. SOCIAL HISTORY: The patient is employed and he does not smoke. His wounds are healed. His edema as well controlled. He has some chronic hemosiderin staining. He has several toenails which are starting to fall off and some debris underneath toenails is quite visible. ASSESSMENT AND PLAN: Chronic venous ulcerations which have healed. We will discharge the patient from the Wound Clinic. He is to follow up with Podiatry for toenails care. I have also recommended that he wear compression stockings on a daily basis and that if he does not, these wounds will occur. He needs also to keep an eye on his edema. If he starts noticing his edema increasing, he needs to go and see his primary care doctor to hopefully prevent it from getting out of control. OLIVER RESENDIZ MD CM:PNTRANS [phone] OLIVER RESENDIZ M.D. 03/22/17 1533 interface
== END ==
LOC: WOUNDCARE 02:30
DX: I87.2 Venous insufficiency (chronic) (peripheral) (principal); E11.622 Type 2 diabetes mellitus with other skin ulcer; L97.812 Non-pressure chronic ulcer of other part of right lower leg with fat layer exposed; L97.821 Non-pressure chronic ulcer of other part of left lower leg limited to breakdown of skin; E66.9 Obesity, unspecified; I10 Essential (primary) hypertension

== ENCOUNTER → 2017-04-03 | Outpatient (CLI) | payer SELFPAY ==
--- NOTE | ~2017-04-03 | PR ---
[place], [place] PROGRESS NOTE NAME: [facility] #: [id number] UNIT #: [id number] ROOM: DOCTOR: ASTRID JefferyOLIVER BIRTHDATE: [birth year] DOS: 04/03/2017 CHIEF COMPLAINT: Recurrent bilateral leg ulcerations. HISTORY OF PRESENT ILLNESS: This is a patient that was recently discharged from the wound clinic on 03/20/2017 for venous leg ulcerations, diabetes and edema. The wounds were healed with compression therapy; however, he was told to make sure he wears his stockings and that if his edema returns that he should go and see his primary care physician before his wounds got out of control. However, he reports edema has started back up again and he has been off of his diuretics for about a month or so, possibly longer where he had some problems with some renal insufficiency and his diuretics were discontinued, but his edema has returned. He is wearing his compression stockings and he has new wounds of his bilateral legs, which are fairly small in comparison to the ones he had before, but he wanted to get them taken care of before they got out of control. He does have several wounds scattered throughout bilateral lower extremities. He said before they opened up, he could actually feel it starting. There is minimal drainage. OBJECTIVE: VITAL SIGNS: His temperature is 97.9, pulse of 86, respirations 20, blood pressure is 180/100. WOUND EXAMINATION: His right lateral leg wound, he has a wound on the lateral side that is measuring 7.4 x 1.7 x 0.1. There are large amounts of necrotic tissue present. There is a wound on the proximal right lower leg that is measuring 0.5 x 0.3 x 0.1. On the distal lower leg, there is one measuring 0.7 x 0.5 x 0.1. On the left lower leg, there is a distal wound that is measuring 1.1 x 0.5 x 0.1. This one does have some visible necrotic tissue. The periwound, there is no sign of an acute cellulitis. There is chronic erythema which appears to be fairly stable and not changed. The edema is definitely increased from the last time I saw him. He has got good peripheral pulses, and his skin in general looks a lot better in his legs than it did. Debridement was done of the right lower leg wound as well as the left lower leg wound. This was a selective debridement only, the tissue removed was just a nonviable tissue, fibrin and slough, adherent keratin. Forceps, scissors and a curette were utilized. Post-debridement measurements for the left leg wound are 7.3 x 1 x 0.1. The post-debridement measurements of the left lower leg is 1.1 x 0.8 x 0.1. The patient tolerated the procedure well. ASSESSMENT AND PLAN: Recurrent venous leg ulcerations. We will go ahead and use the dressing he had before, which was Adaptic and a collagen and have him use the compression bandages. Unna boots today that is what he seemed to respond well to in the past and have him follow up on Saturday for a wound care visit. He has uncontrolled hypertension and he has been off of his diuretics for over a month now, perhaps 6 weeks to 8 weeks. He had blood work done on 02/26/2017 and his BUN was 23, his creatinine was 1.07 and his glucose was 104, so it does seem to be fairly stable. The highest the creatinine went was 1.4, so it is only minimally elevated. He has not had anything since then, however. His blood pressure remains markedly uncontrolled. It has been uncontrolled ever since his diuretics were stopped and he has a followup appointment with his PCP [place], [place] [facility]GR[facility]: [id number] UNIT #: [id number] ROOM: DOCTOR: OLIVER RESENDIZ M.D. BIRTHDATE: [birth year] today at 10:30. He denies any headache, chest pains or dizziness at all, so we will go ahead and he will follow up with his PCP today. I did ask the patient to see if the PCP could give me a call. I would like the patient to perhaps try a low dose diuretic, half of what he was on before or just every other day, perhaps something to get his edema improved because this is going to be a recurrent problem if edema does not improve. Followup in wound clinic on Saturday. OLIVER RESENDIZ MD CM:PNTRANS [phone] OLIVER RESENDIZ M.D. 04/03/17 1200 interface
[2017-04-03 11:14] LABS: BUN 13 mg/dl (7-24); CARBON DIOXIDE 27 mmol/L (21-32); CHLORIDE 105 mmol/L (98-107); EST GLOM FILT AFRICAN AMERICAN > 60 ml/min; GLUCOSE 101 mg/dL (65-99); SODIUM 140 mmol/L (136-145)
== END | disposition home or self-care (01) ==
LOC: RESCLI 00:28
PROVIDERS: Internal Medicine
DX: E11.9 Type 2 diabetes mellitus without complications (principal); I10 Essential (primary) hypertension; L30.9 Dermatitis, unspecified; E55.9 Vitamin D deficiency, unspecified; R60.0 Localized edema; I87.2 Venous insufficiency (chronic) (peripheral); E66.01 Morbid (severe) obesity due to excess calories

== ENCOUNTER → 2017-04-15 | Outpatient (CLI) | payer MEDICAID | LOC: WOUNDCARE 02:03 | DX: I87.2 Venous insufficiency (chronic) (peripheral) (principal); E11.622 Type 2 diabetes mellitus with other skin ulcer; L97.812 Non-pressure chronic ulcer of other part of right lower leg with fat layer exposed; E66.9 Obesity, unspecified ==

== ENCOUNTER → 2017-04-17 | Outpatient (CLI) | payer MEDICAID | END | disposition home or self-care (01) | LOC: RESCLI 08:13 | DX: I10 Essential (primary) hypertension (principal) ==

== ENCOUNTER → 2017-04-22 | Outpatient (CLI) | payer MEDICAID | LOC: WOUNDCARE 02:12 | DX: I87.2 Venous insufficiency (chronic) (peripheral) (principal); L97.812 Non-pressure chronic ulcer of other part of right lower leg with fat layer exposed; E66.9 Obesity, unspecified ==

== ENCOUNTER → 2017-04-25 | Outpatient (CLI) | payer MEDICAID | LOC: WOUNDCARE 02:32 | DX: I87.2 Venous insufficiency (chronic) (peripheral) (principal); L97.812 Non-pressure chronic ulcer of other part of right lower leg with fat layer exposed; E66.9 Obesity, unspecified; R60.0 Localized edema ==

== ENCOUNTER → 2017-04-29 | Outpatient (CLI) | payer MEDICAID | LOC: WOUNDCARE 03:36 | DX: I87.2 Venous insufficiency (chronic) (peripheral) (principal); E11.622 Type 2 diabetes mellitus with other skin ulcer; L97.812 Non-pressure chronic ulcer of other part of right lower leg with fat layer exposed; L97.821 Non-pressure chronic ulcer of other part of left lower leg limited to breakdown of skin; E66.9 Obesity, unspecified ==

== ENCOUNTER → 2017-05-07 | Outpatient (CLI) | payer MEDICAID | END | disposition home or self-care (01) | LOC: RESCLI 02:15 | DX: E66.01 Morbid (severe) obesity due to excess calories (principal); I10 Essential (primary) hypertension; I87.2 Venous insufficiency (chronic) (peripheral); E55.9 Vitamin D deficiency, unspecified; E11.43 Type 2 diabetes mellitus with diabetic autonomic (poly)neuropathy ==

== ENCOUNTER → 2017-05-13 | Outpatient (CLI) | payer MEDICAID ==
--- NOTE | ~2017-05-13 | PR ---
[place], [place] PROGRESS NOTE NAME: [facility] #: [id number] UNIT #: [id number] ROOM: DOCTOR: ASTRID JefferyOLIVER BIRTHDATE: [birth year] DOS: 05/13/2017 WOUND CARE PROGRESS NOTE CHIEF COMPLAINT: Chronic venous leg ulcers. HISTORY OF PRESENT ILLNESS: This is a 57-year-old male with bilateral recurrent venous ulcerations, diabetes and uncontrolled edema. He has been coming to the Wound Clinic for 22 weeks now with recurrent venous stasis ulcers. He wears his known compression stockings, which were ordered by us, this is full compression of 30-40 at least with a two-layer system that last week we had discontinued the Unna boot and he comes in today with new ulcers of the right leg. As soon as Unna boot was discontinued, he had noted recurrent ulcerations just the past couple of days. Today, he has no other specific complaints. He started taking the horse chestnut seed extract to see if that would help with some of his edema. He says he really has not noticed a difference yet. He has no other specific complaints. No fevers or chills are noted. SOCIAL HISTORY: He does not smoke or drink. He continues to work. OBJECTIVE: VITAL SIGNS: Temperature 98.1, pulse of 80, respirations 18, blood pressure is elevated as usual at 148/98. EXTREMITIES: The wounds on the left leg appeared to stay healed; however, he has new open areas on the right lateral leg that is measuring 3.3 x 1.3 x 0.1. It looks fairly clean. There is no obvious necrotic tissue. There is another one located in the anterior distal leg that is measuring 0.4 x 0.4 x 0.1. No debridement was done. ASSESSMENT AND PLAN: Chronic recurrent venous ulcerations secondary to uncontrolled edema. He does well with Unna boot, so we will go ahead and restart the Unna boot on the right leg, he does have an appointment with Dr. Valentine later in May, so hopefully he may be a candidate for venous ablation. He started taking the horse chestnut seed extract as an agent to help with edema, we will go ahead and check his blood work. Follow up in Wound Clinic in one week. If for some reason the Unna boot seems to be flying down, he is to come in sooner and have a nurse for nursing visit to change the wrap, but otherwise he is to continue it for one week. [place], [place] PROGRESS NOTE NAME: [facility] UNIT #: [id number] ROOM: DOCTOR: OLIVER RESENDIZ M.D. BIRTHDATE: [birth year] OLIVER RESENDIZ MD CM:ANDI [id number] OLIVER RESENDIZ M.D. 05/13/17 1040 interface
[2017-05-13 10:12] LABS: BASO # 0.1 10*3/uL (0.0-0.1); BASO % 0.7 % (0.0-1.0); BILIRUBIN NEGATIVE (NEGATIVE); BLOOD NEGATIVE (NEGATIVE); CLARITY CLEAR (CLEAR); COLOR YELLOW (YELLOW); EOS # 0.3 10*3/uL (0.0-0.4); GLUCOSE NEGATIVE (NEGATIVE); HEMATOCRIT 45.6 % (42.0-52.0); KETONE NEGATIVE (NEGATIVE); LEUKO ESTERASE NEGATIVE (NEGATIVE); LYMPH # 1.9 10*3/uL (1.3-4.4); LYMPH % 21.5 % (27.0-41.0); MEAN CORPUSCULAR HGB 28.3 pg (27.0-31.0); MEAN CORPUSCULAR HGB CONC 32.9 g/dl (33.0-37.0); MEAN PLATELET VOLUME 9.8 fl (9.6-12.3); MONO # 0.6 10*3/uL (0.1-1.0); MONO % 6.3 % (3.0-9.0); NEUT # 6.1 10*3/uL (2.3-7.9); NEUT % 68.1 % (47.0-73.0); NITRITE NEGATIVE (NEGATIVE); PLATELET COUNT AUTOMATED 213 10*3/uL (130-400); PROTEIN NEGATIVE (NEGATIVE); RED CELL DISTRI WIDTH 13.8 % (0-14.5); UROBILINOGEN 0.2 E.U./dl (0.2-1.0)
[2017-05-13 10:34] LABS: HEMOGLOBIN A1c 6.4 % (4.8-5.6)
[2017-05-13 10:39] LABS: ALBUMIN 3.3 gm/dl (3.1-4.5); ALKALINE PHOSPHATASE 71 U/L (45-117); BILIRUBIN, TOTAL 0.5 mg/dl (0.2-1.0); BUN 16 mg/dl (7-24); CARBON DIOXIDE 27 mmol/L (21-32); CHLORIDE 103 mmol/L (98-107); CHOLESTEROL 134 mg/dL (<200); EST GLOM FILT AFRICAN AMERICAN > 60 ml/min; GLUCOSE 110 mg/dL (65-99); HDL CHOLESTEROL 44 mg/dl (40-60); LDL CHOLESTEROL 66 mg/dL (9-159); POTASSIUM 4.2 mmol/L (3.5-5.1); SGOT/AST 26 IU/L (3-35); SGPT/ALT 27 U/L (12-78); SODIUM 137 mmol/L (136-145); TOTAL PROTEIN 7.6 gm/dL (6.4-8.2); TRIGLYCERIDES 119 mg/dl (<150); VLDL CHOLESTEROL 24 mg/dL (6-40)
[2017-05-13 11:56] LABS: MUCOUS 1+
== END | disposition home or self-care (01) ==
LOC: WOUNDCARE 02:46 → LAB 02:46 → WOUNDCARE 07:52
PROVIDERS: Internal Medicine
DX: L97.912 Non-pressure chronic ulcer of unspecified part of right lower leg with fat layer exposed (principal); I87.2 Venous insufficiency (chronic) (peripheral); E66.9 Obesity, unspecified; E11.43 Type 2 diabetes mellitus with diabetic autonomic (poly)neuropathy

== ENCOUNTER → 2017-05-20 | Outpatient (CLI) | payer MEDICAID ==
--- NOTE | ~2017-05-20 | PR ---
[place], [place] PROGRESS NOTE NAME: [facility] #: [id number] UNIT #: [id number] ROOM: DOCTOR: ASTRID JefferyOLIVER BIRTHDATE: [birth year] DOS: 05/20/2017 CHIEF COMPLAINT: Followup of venous leg ulcers. SUBJECTIVE: A 57-year-old male with bilateral venous ulcerations, diabetes, chronic edema, uncontrolled hypertension, who comes in for followup of bilateral venous leg ulcers. The last time he was here, he actually had healed his left leg wounds and we had just been dealing with the right leg, which still had open wounds. He was to use an Unna boot on the right leg. However, he has been using his own compression stockings on his left leg and has had some new open areas pop back open on that leg. The right leg wound is definitely getting smaller. The patient reports no specific complaints with the Unna boot; it has been on all week. He does have a followup appointment with Dr. Valentine'juan this . OBJECTIVE: VITAL SIGNS: Temperature is 98.2, pulse is 88, respirations 18, blood pressure 148/100. EXTREMITIES: The right lower extremity wound is measuring smaller at 3 x 1 x 0.1. The other wounds on the right leg are healed. He has a new open area on the left leg that is measuring 0.7 x 0.5 x 0.1 and another one 0.4 x 0.3 x 0.1. It has some adherent fibrin slough present. Selective debridement was done of the wound on the right leg; just the tissue removed, devitalized tissue, just fibrin and slough, hyperkeratosis with forceps and scissors. Cetacaine spray was used for topical anesthesia. No bleeding occurred. The patient tolerated the debridement well. Cetacaine spray was used for topical anesthesia. For the left leg, a curette was utilized just to remove devitalized tissue. There was no bleeding. Post-debridement measurements are unchanged. The patient tolerated the debridement well. Both wounds on the left leg were debrided. There was some minimal erythema around the left leg that was slightly warm, but not acutely tender. ASSESSMENT AND PLAN: Recurrent venous ulcerations. The right leg wound is definitely improving with compression therapy. We will continue collagen, Adaptic, and an Unna boot to the left leg. He has new wounds that have occurred secondary to compression not being as effective, so we will go ahead and resume compression on the left leg as well. He does have some minimal erythema and some mild inflammation around these wounds, so we will add doxycycline 100 twice a day for 10 days. He has a followup appointment on with Dr. Valentine. We will go ahead and put the Unna boots on now. If the Unna boots cannot be changed on by Dr. Valentine's office, the patient is to call and come in for nursing visit, so we can put them back on . He may be a candidate for venous ablation and I think he might benefit from venous lymphedema pumps. We will see if his insurance will approve it. Follow up in 1 week. [place], [place] PROGRESS NOTE NAME: [facility] [id number] UNIT #: [id number] ROOM: DOCTOR: OLIVER RESENDIZ M.D. BIRTHDATE: [birth year] OLIVER RESENDIZ MD CM:ANDI [id number] OLIVER RESENDIZ M.D. 05/20/17 1204 interface
== END | disposition home or self-care (01) ==
LOC: WOUNDCARE 03:14
DX: E11.622 Type 2 diabetes mellitus with other skin ulcer (principal); I87.2 Venous insufficiency (chronic) (peripheral); L97.812 Non-pressure chronic ulcer of other part of right lower leg with fat layer exposed; L97.821 Non-pressure chronic ulcer of other part of left lower leg limited to breakdown of skin; I10 Essential (primary) hypertension; E66.9 Obesity, unspecified; Z68.1 Body mass index [BMI] 19.9 or less, adult

== ENCOUNTER → 2017-05-27 | Outpatient (CLI) | payer MEDICAID ==
--- NOTE | ~2017-05-27 | PR ---
[place], [place] PROGRESS NOTE NAME: [facility] #: [id number] UNIT #: [id number] ROOM: DOCTOR: ASTRID JefferyOLIVER BIRTHDATE: [birth year] DOS: 05/27/2017 SUBJECTIVE: Bilateral leg ulcerations. HISTORY OF PRESENT ILLNESS: This is a 57-year-old male with bilateral venous ulcerations, diabetes, chronic edema, uncontrolled hypertension who has been following up in the Wound Clinic for 24 weeks. He has had recurrent venous ulcers off and on due to uncontrolled edema. He has had Unna boots on for the past week now without any particular complaints except for some itching areas right on the upper part of the Unna boot where he said he did scratch a little bit. It was noted that he had some new open area on the left anterior leg due to that; otherwise, he is doing quite well with the Unna boots and has no particular complaints. His blood pressure was noted to be elevated today at 158/104. His pulse is 76, his respirations are 18. He says his doctor told him to take his blood pressure medications in the early afternoon instead of in the morning. He has a new wound located on the left anterior leg that is from him scratching the area. It is 0.8 x 0.4 x 0.1. It is superficial, was just denuded skin, and there is another wound that already looks like on its way to healing. It is actually new. It is on the lateral side of the right leg. The wound before seems healed, but he has another wound, which is a small area that seems to have been perhaps from where the Unna boot was rubbing, but the other wound definitely has healed. It is 1 x 2.4 x 0.1. There is no debridement done on any of these wounds. They are fairly superficial and without necrotic tissue. ASSESSMENT AND PLAN: Chronic venous ulcerations that are recurrent. He saw [facility] last week, but really no procedures or testing was done. He is awaiting for them to call him back for followup. We will go ahead and do the Unna boots one more week. I hope that the wounds will stay healed with that and no new wounds will occur hopefully. We will use hydrocortisone for the areas of itching that he complains about which is really right at the edges of the Unna boots per se and to hopefully prevent that from happening again. He is going to need to go back to wearing his compression stockings and then we will see if he is a candidate for lymphedema pumps. Follow up in 1 week. He does have uncontrolled hypertension. I wrote out his blood pressure readings for the past 5-6 weeks, so that he could share this with his primary care doctor as we have had a very high readings before and he continues to have uncontrolled blood pressure when he comes to our clinic. He was on a diuretic at one point, but has been taken off of it. [place], [place] PROGRESS NOTE NAME: [facility] [id number] UNIT #: [id number] ROOM: DOCTOR: OLIVER RESENDIZ M.D. BIRTHDATE: [birth year] OLIVER RESENDIZ MD CM:ANDI [id number] OLIVER RESENDIZ M.D. 05/28/17 0827 interface
== END | disposition home or self-care (01) ==
LOC: WOUNDCARE 01:21
DX: I87.2 Venous insufficiency (chronic) (peripheral) (principal); L97.821 Non-pressure chronic ulcer of other part of left lower leg limited to breakdown of skin; L97.811 Non-pressure chronic ulcer of other part of right lower leg limited to breakdown of skin; E66.9 Obesity, unspecified; I10 Essential (primary) hypertension

== ENCOUNTER → 2017-06-03 | Outpatient (CLI) | payer MEDICAID ==
--- NOTE | ~2017-06-03 | PR ---
[place], [place] PROGRESS NOTE NAME: [facility] #: [id number] UNIT #: [id number] ROOM: DOCTOR: ASTRID JefferyOLIVER BIRTHDATE: [birth year] DOS: 06/03/2017 CHIEF COMPLAINT: Follow up of venous leg ulcers. HISTORY OF PRESENT ILLNESS: This is a 57-year-old male with chronic and recurrent venous ulcerations, chronic edema, and uncontrolled hypertension, who follows up in the Wound Clinic for recurrent venous leg ulcers. He heals fairly well with Unna boots and had Unna boots placed bilaterally last week. He comes in for followup. He has had no specific complaints with the Unna boots. There is one area that he scratched his legs a little bit at the top of the boot. Other than that, he has no other specific complaints. No fevers or chills. He was seen by Dr. Valentine's office for preliminary workup, but has not been called yet for further appointments. OBJECTIVE: VITAL SIGNS: Stable, but still has uncontrolled hypertension, which is chronic for the patient, temperature is 98.3, pulse of 78, respirations 18, blood pressure is 158/98. WOUND EXAMINATION: The wounds are healed, all the wounds on left and right leg. The edema is well controlled. There is no need for any debridement. ASSESSMENT AND PLAN: Recurrent venous stasis ulcerations, chronic edema. The patient does well with compression. He does have compression stockings at home, so he will go ahead and use those daily. Despite using his compression stockings; however, he does end up with recurrent blistering and venous ulcers. So, we will see if he is a candidate for lymphedema pumps to be utilized as well as an adjuvant treatment to hopefully prevent recurrence. We will discharge the patient from the Wound Clinic today. However, most likely the patient will have a recurrence; however, hopefully, he will stay wound-free for at greater length of time at this point. He will see Dr. Valentine as well and then we will see if we can get him lymphedema pumps. ADDENDUM SOCIAL HISTORY: The patient is a nonsmoker. [place], [place] PROGRESS NOTE NAME: [facility] #: [id number] UNIT #: [id number] ROOM: DOCTOR: OLIVER RESENDIZ M.D. BIRTHDATE: [birth year] OLIVER RESENDIZ MD CM:ANDI [id number] OLIVER RESENDIZ M.D. 06/03/172049 interface
== END | disposition home or self-care (01) ==
LOC: WOUNDCARE 00:55
DX: I87.2 Venous insufficiency (chronic) (peripheral) (principal); L97.811 Non-pressure chronic ulcer of other part of right lower leg limited to breakdown of skin; L97.821 Non-pressure chronic ulcer of other part of left lower leg limited to breakdown of skin; E66.9 Obesity, unspecified; Z68.1 Body mass index [BMI] 19.9 or less, adult; I10 Essential (primary) hypertension; I89.0 Lymphedema, not elsewhere classified

== ENCOUNTER → 2017-06-11 | Outpatient (CLI) | payer MEDICAID | END | disposition home or self-care (01) | LOC: RESCLI 09:24 | DX: I10 Essential (primary) hypertension (principal); E55.9 Vitamin D deficiency, unspecified; E11.43 Type 2 diabetes mellitus with diabetic autonomic (poly)neuropathy; I87.8 Other specified disorders of veins; E66.01 Morbid (severe) obesity due to excess calories; L97.201 Non-pressure chronic ulcer of unspecified calf limited to breakdown of skin ==

== ENCOUNTER → 2017-06-11 | Outpatient (CLI) | payer MEDICAID ==
--- NOTE | ~2017-06-11 | PR ---
[place], [place] PROGRESS NOTE NAME: [facility] #: [id number] UNIT #: [id number] ROOM: DOCTOR: ASTRID JefferyOLIVER BIRTHDATE: [birth year] DOS: 06/11/2017 CHIEF COMPLAINT: Followup of recurrent leg ulcerations. HISTORY OF PRESENT ILLNESS: This is a 57-year-old male with a history of recurrent venous ulcerations, chronic edema and uncontrolled hypertension, who was discharged just last week from the wound clinic for healed venous ulcerations. He apparently did okay until just a couple days ago where he had noticed new open wounds. He really has not been keeping them covered with any type of dressing and did not wear his compression stockings since the wounds have started. He did have an appointment with Dr. Valentine's clinic, had a venous Doppler it looks like, but no further appointments or interventions were made for him. He otherwise has no specific complaints. His blood pressure was noted to be markedly elevated today again. He denies dizziness, chest pains or shortness of breath at all. He says he took his medications at 7 this morning. He is a nonsmoker, nondrinker. PHYSICAL EXAMINATION: VITAL SIGNS: Temperature 98.4, pulse 80, respirations 18, blood pressure 168/108. SKIN: Wound #1, which is located on the right lateral leg is measuring 2.5 x 1.5 x 0.1. It is covered in dried eschar and then there is another wound that is located on the medial left leg, which is measuring 1.2 x 5.3 x 0.1, also dried adherent eschar. Debridement was done of both of these wounds. The tissue removed was fibrin, slough and subcutaneous tissue. This was accomplished with forceps and scissors. There was a moderate amount of bleeding that was controlled with pressure. The patient tolerated the debridement well. Cetacaine spray was used for topical anesthesia. Measurements of the right lateral leg are measuring 3.5 x 1.5 x 0.1 and the other leg, which is the medial lower leg is definitely a little bit bigger at 1.9 x 5.9 x 0.2. Fat layer was exposed. The instruments used were curette, forceps, and scissors. The patient tolerated the debridement well. ASSESSMENT AND PLAN: Recurrent venostasis ulcerations. Despite the patient wearing his compression stockings pretty regularly, he continues to have recurrent ulcerations. We will go ahead and use Adaptic and a collagen and Unna boots and have him follow up for nursing visit in 3 days for wrap change. I also think he may be a candidate for lymphedema pumps and/or consider getting tighter compression stockings ordered for him. We will look into this matter further and see if there is any other available compression garments that can be ordered for him. He may benefit from going to a compression management clinic to actually get measured and fitted for tighter compression garments. We will discuss this with him at the next visit as well. He has uncontrolled hypertension. He is asymptomatic. This is chronic and ongoing. Repeat blood pressure taken was 160/100. The resident's office was open today, he does follow up with the resident clinic fairly regularly. I called them to inform them of his blood pressure reading and they did advise him to go over to the clinic right after the wound care appointment, so the patient will be going to the resident's clinic for further management of uncontrolled hypertension. [place], [place] PROGRESS NOTE NAME: [facility]: [id number] UNIT #: [id number] ROOM: DOCTOR: OLIVER RESENDIZ M.D. BIRTHDATE: [birth year] OLIVER RESENDIZ MD CM:PNTRANS [id number] OLIVER RESENDIZ M.D. 06/12/17 0054 interface
== END | disposition home or self-care (01) ==
LOC: WOUNDCARE 03:44
DX: I87.2 Venous insufficiency (chronic) (peripheral) (principal); L97.822 Non-pressure chronic ulcer of other part of left lower leg with fat layer exposed; L97.212 Non-pressure chronic ulcer of right calf with fat layer exposed; I10 Essential (primary) hypertension

== ENCOUNTER → 2017-06-14 | Outpatient (CLI) | payer MEDICAID | END | disposition home or self-care (01) | LOC: WOUNDCARE 00:19 | DX: I87.2 Venous insufficiency (chronic) (peripheral) (principal); L97.212 Non-pressure chronic ulcer of right calf with fat layer exposed; L97.822 Non-pressure chronic ulcer of other part of left lower leg with fat layer exposed ==

== ENCOUNTER → 2017-06-18 | Outpatient (CLI) | payer OTHER ==
--- NOTE | ~2017-06-18 | PR ---
[place], [place] PROGRESS NOTE NAME: [facility] #: [id number] UNIT #: [id number] ROOM: DOCTOR: ASTRID JefferyOLIVER BIRTHDATE: [birth year] DOS: 06/18/2017 WOUND CARE PROGRESS NOTE CHIEF COMPLAINT: Followup of bilateral leg ulcerations. HISTORY OF PRESENT ILLNESS: This is a 57-year-old male with history of recurrent venous ulcerations, chronic edema and uncontrolled hypertension who has been coming to the Wound Clinic for several months now for recurrent ulcerations that healed quite well with compression, but quickly recur once compression wraps are discontinued. He has had Unna boot on since last week and comes in for just his routine visit. He has no specific complaints. Last week, his blood pressure was markedly elevated when we saw him and he was sent to his PCP, but by the time he got there, his blood pressure was okay per patient report. In any case, he comes in without any specific complaints. OBJECTIVE: VITAL SIGNS: His vitals are stable, temperature is 98.3, pulse of 78, respirations 18, blood pressure is 166/90. The right lower leg wound is still open at 1.5 x 0.5 x 0.1. The left leg has some devitalized tissue around the wound. It is measuring 0.1 x 0.1 x 0.1, it is difficult to say if there is anything open underneath that. Selective debridement was done of the right leg wound as well as the left leg area. Tissue removed was just devitalized fibrin slough and this occurred with forceps and scissors. There was no bleeding. The patient tolerated the debridement well. The wound is healed on the left leg after debridement and the wound remains unchanged with the right lower leg after debridement of the right lower leg. ASSESSMENT AND PLAN: Recurrent venous ulcerations secondary to uncontrolled edema. He is stable and doing quite well with compression. We will go ahead and keep the Unna boot on the right leg for another week. Hopefully, by then, it will be healed. We will see if we can order Juxta-Lite or CircAid type wraps for him instead of the two-layer, I do not think the two-layer is effective enough for him or tight enough for him, and we do think he might benefit from lymphedema pumps, so hopefully those are in process of being ordered and will follow up in one week. ADDENDUM I just wanted to mention an Unna boot was applied in standard fashion. [place], [place] PROGRESS NOTE NAME: [facility] UNIT #: [id number] ROOM: DOCTOR: OLIVER RESENDIZ M.D. BIRTHDATE: [birth year] OLIVER RESENDIZ MD CM:ANDI [id number] OLIVER RESENDIZ M.D. 06/18/17 1610 interface
== END | disposition home or self-care (01) ==
LOC: WOUNDCARE 03:12
DX: I87.2 Venous insufficiency (chronic) (peripheral) (principal); L97.212 Non-pressure chronic ulcer of right calf with fat layer exposed; L97.821 Non-pressure chronic ulcer of other part of left lower leg limited to breakdown of skin; I10 Essential (primary) hypertension

== ENCOUNTER → 2017-06-24 | Outpatient (CLI) | payer OTHER ==
--- NOTE | ~2017-06-24 | PR ---
[place], [place] PROGRESS NOTE NAME: BRUNA BLANC [facility] #: [id number] UNIT #: [id number] ROOM: DOCTOR: ASTRID JefferyOLIVER BIRTHDATE: [birth year] DOS: 06/24/2017 CHIEF COMPLAINT: Followup of right lower extremity ulceration. HISTORY OF PRESENT ILLNESS: A 57-year-old male with a history of recurrent venous ulcerations, chronic edema, uncontrolled hypertension who has been following off and on the wound clinic for several months now. The wounds healed quite well with compression, but quickly reopen once Unna boots are removed due to uncontrolled edema. The patient has compression stockings, but we feel that they are not tight enough for him and could use a higher level of compression. Unfortunately, his insurance will not cover new compression wraps or stockings. I think he would benefit from a CircAid type system. Also, we do have paperwork set up for insurance to see if he will be approved for lymphedema pumps, which should help as well. He has had a consultation with Dr. Valentine, but has not heard anything for future intervention regarding that. PHYSICAL EXAMINATION: His vitals are stable. Unfortunately, blood pressure is still uncontrolled. This is chronic and recurrent. Blood pressure is 170/100, temperature is 97.7, pulse of 68, respirations 18. The patient denies any complaints of the blood pressure. The wounds are stable. The right leg wound has definitely improved; it is 1.5 x 0.5 x 0.1; there has been a lot of epithelialization; there is very minimal devitalized tissue. He does complain of an open area in the left anterior leg, which was draining; he said last night he noticed that. It is measuring 1.1 x 0.8 x 0.1. It does look to be healing quite nicely. This was the same wound that he had before and it healed with compression. A selective debridement was done of the right lateral leg wound to remove just devitalized tissue, this occurred with forceps and scissors. The patient tolerated the debridement well. There was no bleeding. Cetacaine spray was used for topical anesthesia. The right lower leg wound post-debridement measurements are 0.8 x 1.3 x 0.1. ASSESSMENT AND PLAN: Recurrent venous ulcerations complicated by uncontrolled edema. The patient does well with compression. We will go ahead and continue with the Unna boots and have him come back later this week for wrap change and then a follow up wound clinic appointment the following week. His blood pressure has been markedly uncontrolled. We sent him to the primary care physician on multiple occasions and the Emergency Room on multiple occasions; however, no change in his blood pressure medications has been recommended per PCP and we did make sure that we had written all the blood pressure readings that we had here, so that they were aware of what his blood pressure is when he comes to the wound clinic. Within the past week or so we sent him back to pcp due to elevated BP, but no change made. [place], [place] PROGRESS NOTE NAME: GUANACOBRUNA UNIT #: [id number] ROOM: DOCTOR: OLIVER RESENDIZ M.D. BIRTHDATE: [birth year] OLIVER RESENDIZ MD CM:ANDI [id number] OLIVER RESENDIZ M.D. 06/25/17 1450 interface
== END | disposition home or self-care (01) ==
LOC: WOUNDCARE 01:50
DX: I87.2 Venous insufficiency (chronic) (peripheral) (principal); L97.212 Non-pressure chronic ulcer of right calf with fat layer exposed; I10 Essential (primary) hypertension

== ENCOUNTER → 2017-06-27 | Outpatient (CLI) | payer OTHER | END | disposition home or self-care (01) | LOC: WOUNDCARE 00:51 | DX: I87.2 Venous insufficiency (chronic) (peripheral) (principal); L97.212 Non-pressure chronic ulcer of right calf with fat layer exposed ==

== ENCOUNTER → 2017-07-03 | Outpatient (CLI) | payer OTHER | END | disposition home or self-care (01) | LOC: WOUNDCARE 02:02 | DX: I87.333 Chronic venous hypertension (idiopathic) with ulcer and inflammation of bilateral lower extremity (principal); L97.222 Non-pressure chronic ulcer of left calf with fat layer exposed; L97.212 Non-pressure chronic ulcer of right calf with fat layer exposed; L97.821 Non-pressure chronic ulcer of other part of left lower leg limited to breakdown of skin; L97.811 Non-pressure chronic ulcer of other part of right lower leg limited to breakdown of skin; I10 Essential (primary) hypertension; E11.319 Type 2 diabetes mellitus with unspecified diabetic retinopathy without macular edema ==

== ENCOUNTER 2017-07-11 09:29 | Emergency (ER) | payer OTHER ==
[~2017-07-11] VITALS: Ht 185.4 cm; Wt 136.1 kg
[2017-07-11 10:03] LABS: BASO # 0.1 10*3/uL (0.0-0.1); BASO % 0.8 % (0.0-1.0); EOS # 0.3 10*3/uL (0.0-0.4); EOS % 4.3 % (1.0-4.0); HEMATOCRIT 46.8 % (42.0-52.0); HEMOGLOBIN 15.5 g/dl (14.0-18.0); LYMPH # 1.8 10*3/uL (1.3-4.4); LYMPH % 24.7 % (27.0-41.0); MEAN CORPUSCULAR HGB 29.5 pg (27.0-31.0); MEAN CORPUSCULAR HGB CONC 33.1 g/dl (33.0-37.0); MEAN PLATELET VOLUME 9.7 fl (9.6-12.3); MONO # 0.6 10*3/uL (0.1-1.0); MONO % 8.1 % (3.0-9.0); NEUT # 4.5 10*3/uL (2.3-7.9); NEUT % 61.8 % (47.0-73.0); PLATELET COUNT AUTOMATED 179 10*3/uL (130-400); RED BLOOD COUNT 5.26 10*6/uL (4.50-5.90); RED CELL DISTRI WIDTH 13.3 % (0-14.5); WHITE BLOOD COUNT 7.3 10*3/uL (4.8-10.8)
[2017-07-11 10:19] LABS: ALBUMIN 3.2 gm/dl (3.1-4.5); ALKALINE PHOSPHATASE 82 U/L (45-117); BUN 12 mg/dl (7-24); CHLORIDE 105 mmol/L (98-107); CREATININE 0.84 mg/dL (0.70-1.30); MAGNESIUM 2.2 mg/dL (1.5-2.1); POTASSIUM 3.9 mmol/L (3.5-5.1); SGOT/AST 26 IU/L (3-35); SGPT/ALT 36 U/L (12-78); SODIUM 141 mmol/L (136-145); TOTAL PROTEIN 7.3 gm/dL (6.4-8.2)
[2017-07-11 10:46] LABS: TROPONIN I < 0.015 ng/ml (<0.045)
== END 2017-07-11 12:27 | disposition home or self-care (01) ==
LOC: ED 09:29
PROVIDERS: Nurse Practitioner Family
DX: I10 Essential (primary) hypertension (principal); E11.9 Type 2 diabetes mellitus without complications; Z79.4 Long term (current) use of insulin; Z79.899 Other long term (current) drug therapy

== ENCOUNTER → 2017-07-11 | Outpatient (CLI) | payer OTHER | END | disposition home or self-care (01) | LOC: WOUNDCARE 00:25 | DX: E11.622 Type 2 diabetes mellitus with other skin ulcer (principal); I87.333 Chronic venous hypertension (idiopathic) with ulcer and inflammation of bilateral lower extremity; L97.212 Non-pressure chronic ulcer of right calf with fat layer exposed; L97.222 Non-pressure chronic ulcer of left calf with fat layer exposed; I10 Essential (primary) hypertension; E11.319 Type 2 diabetes mellitus with unspecified diabetic retinopathy without macular edema; Z72.89 Other problems related to lifestyle ==

== ENCOUNTER → 2017-07-16 | Outpatient (CLI) | payer OTHER | END | disposition home or self-care (01) | LOC: RESCLI 02:11 | DX: E11.43 Type 2 diabetes mellitus with diabetic autonomic (poly)neuropathy (principal); E11.628 Type 2 diabetes mellitus with other skin complications; I10 Essential (primary) hypertension; E55.9 Vitamin D deficiency, unspecified; I87.8 Other specified disorders of veins; E66.01 Morbid (severe) obesity due to excess calories; L97.201 Non-pressure chronic ulcer of unspecified calf limited to breakdown of skin; R01.1 Cardiac murmur, unspecified ==

== ENCOUNTER 2017-07-23 11:01 | Emergency (ER) | payer OTHER ==
[~2017-07-23] VITALS: Ht 185.4 cm; Wt 136.1 kg
[2017-07-23 12:02] LABS: BASO # 0.1 10*3/uL (0.0-0.1); BASO % 0.7 % (0.0-1.0); EOS # 0.3 10*3/uL (0.0-0.4); EOS % 3.2 % (1.0-4.0); HEMOGLOBIN 16.2 g/dl (14.0-18.0); MEAN CELL VOLUME 87.5 fl (80.0-94.0); MEAN CORPUSCULAR HGB 28.9 pg (27.0-31.0); MEAN CORPUSCULAR HGB CONC 33.1 g/dl (33.0-37.0); MEAN PLATELET VOLUME 9.7 fl (9.6-12.3); MONO # 0.7 10*3/uL (0.1-1.0); NEUT # 5.6 10*3/uL (2.3-7.9); NEUT % 64.8 % (47.0-73.0); PLATELET COUNT AUTOMATED 201 10*3/uL (130-400); RED CELL DISTRI WIDTH 13.2 % (0-14.5); WHITE BLOOD COUNT 8.6 10*3/uL (4.8-10.8)
[2017-07-23 12:21] LABS: ALBUMIN 3.3 gm/dl (3.1-4.5); ALKALINE PHOSPHATASE 73 U/L (45-117); BUN 19 mg/dl (7-24); CHLORIDE 103 mmol/L (98-107); CREATININE 0.98 mg/dL (0.70-1.30); SGOT/AST 47 IU/L (3-35); SGPT/ALT 43 U/L (12-78); SODIUM 138 mmol/L (136-145); TOTAL PROTEIN 7.5 gm/dL (6.4-8.2)
== END 2017-07-23 15:09 | disposition home or self-care (01) ==
LOC: ED 11:01
PROVIDERS: Emergency Medicine
DX: G56.23 Lesion of ulnar nerve, bilateral upper limbs (principal); Z90.49 Acquired absence of other specified parts of digestive tract; Z98.890 Other specified postprocedural states; Z79.899 Other long term (current) drug therapy

== ENCOUNTER → 2017-07-25 | Outpatient (CLI) | payer OTHER ==
[~2017-07-25] MED LIST changes: +HORSE CHESTNUT300 MG PO; +Lopressor25 MG PO; +NEURONTIN100 MG PO; +NORVASC5 MG PO
== END | disposition home or self-care (01) ==
LOC: WOUNDCARE 00:52
DX: I87.313 Chronic venous hypertension (idiopathic) with ulcer of bilateral lower extremity (principal); E11.622 Type 2 diabetes mellitus with other skin ulcer; L97.811 Non-pressure chronic ulcer of other part of right lower leg limited to breakdown of skin; L97.821 Non-pressure chronic ulcer of other part of left lower leg limited to breakdown of skin; I10 Essential (primary) hypertension; E11.319 Type 2 diabetes mellitus with unspecified diabetic retinopathy without macular edema; Z72.89 Other problems related to lifestyle

== ENCOUNTER → 2017-07-30 | Outpatient (CLI) | payer OTHER | END | disposition home or self-care (01) | LOC: RESCLI 02:58 | DX: E11.43 Type 2 diabetes mellitus with diabetic autonomic (poly)neuropathy (principal); R20.2 Paresthesia of skin; I11.0 Hypertensive heart disease with heart failure; I50.32 Chronic diastolic (congestive) heart failure; E11.621 Type 2 diabetes mellitus with foot ulcer; L97.201 Non-pressure chronic ulcer of unspecified calf limited to breakdown of skin; R20.0 Anesthesia of skin; E55.9 Vitamin D deficiency, unspecified; E66.01 Morbid (severe) obesity due to excess calories; I87.8 Other specified disorders of veins ==

== ENCOUNTER → 2017-07-31 | Outpatient (CLI) | payer OTHER ==
--- NOTE | 2017-07-31 10:00 | NUR ---
INFORMED CONSENT OBTAINED FOR LEXISCAN NUCLEAR STRESS TEST WITH DR. HERRERA. RESTING EKG NSR WITH A RESTING HR OF 77 WITH BP OF 164/90. LUNGS CLEAR WITH SP02 OF 97% ON ROOM AIR. PT COMPLETED A 1:00 LEXISCAN PROTOCOL RECEIVING LEXISCAN 0.4 MG IV OVER 10 SECONS. HAD NO CHEST PAIN OR ANY EKG CHANGES. DID C/O FEELING SHORTNESS OF BREATH THAT WAS RELIEVED IN RECOVERY. PEAK HR OF 105 WITH BP OF 124/80. LAST RECOVERY HR OF 95 WITH BP OF 130/80. AWAITING SCANNING IN STABLE CONDITION.
[2017-07-31 12:37] LABS: BUN 15 mg/dl (7-24); CHLORIDE 103 mmol/L (98-107); POTASSIUM 4.2 mmol/L (3.5-5.1); SODIUM 138 mmol/L (136-145)
[2017-07-31 13:24] LABS: VITAMIN D, 25-HYDROXY 25.5 ng/mL (30-100)
== END | disposition home or self-care (01) ==
LOC: LAB 00:47 → CARD 10:00
PROVIDERS: Internal Medicine
DX: E11.43 Type 2 diabetes mellitus with diabetic autonomic (poly)neuropathy (principal); I10 Essential (primary) hypertension; I87.8 Other specified disorders of veins; E66.01 Morbid (severe) obesity due to excess calories; R01.1 Cardiac murmur, unspecified; E55.9 Vitamin D deficiency, unspecified; R20.2 Paresthesia of skin; R20.0 Anesthesia of skin; R53.83 Other fatigue

== ENCOUNTER → 2017-08-01 | Outpatient (CLI) | payer OTHER | END | disposition home or self-care (01) | LOC: WOUNDCARE 03:27 | DX: E11.621 Type 2 diabetes mellitus with foot ulcer (principal); L97.811 Non-pressure chronic ulcer of other part of right lower leg limited to breakdown of skin; I87.333 Chronic venous hypertension (idiopathic) with ulcer and inflammation of bilateral lower extremity; L97.212 Non-pressure chronic ulcer of right calf with fat layer exposed; L97.222 Non-pressure chronic ulcer of left calf with fat layer exposed; E11.319 Type 2 diabetes mellitus with unspecified diabetic retinopathy without macular edema; I87.2 Venous insufficiency (chronic) (peripheral); Z72.89 Other problems related to lifestyle ==

== ENCOUNTER → 2017-08-02 | Outpatient (CLI) | payer OTHER | END | disposition home or self-care (01) | LOC: CT 08-01 13:00 | DX: R20.2 Paresthesia of skin (principal) ==

== ENCOUNTER → 2017-08-06 | Outpatient (CLI) | payer OTHER | LOC: RESCLI 08-02 08:00 | DX: I11.0 Hypertensive heart disease with heart failure (principal); I50.32 Chronic diastolic (congestive) heart failure; R20.2 Paresthesia of skin; R20.0 Anesthesia of skin; E55.9 Vitamin D deficiency, unspecified; E11.43 Type 2 diabetes mellitus with diabetic autonomic (poly)neuropathy; E66.01 Morbid (severe) obesity due to excess calories; I87.8 Other specified disorders of veins; L97.201 Non-pressure chronic ulcer of unspecified calf limited to breakdown of skin; E11.8 Type 2 diabetes mellitus with unspecified complications; M47.812 Spondylosis without myelopathy or radiculopathy, cervical region; R42 Dizziness and giddiness ==

== ENCOUNTER → 2017-08-08 | Outpatient (CLI) | payer OTHER | END | disposition home or self-care (01) | LOC: WOUNDCARE 00:52 | DX: E11.622 Type 2 diabetes mellitus with other skin ulcer (principal); L97.212 Non-pressure chronic ulcer of right calf with fat layer exposed; I10 Essential (primary) hypertension; E11.319 Type 2 diabetes mellitus with unspecified diabetic retinopathy without macular edema; Z72.89 Other problems related to lifestyle ==

== ENCOUNTER → 2017-08-09 | Outpatient (CLI) | payer OTHER | END | disposition home or self-care (01) | LOC: MRI 02:48 | DX: Z53.9 Procedure and treatment not carried out, unspecified reason (principal) ==

== ENCOUNTER → 2017-08-15 | Outpatient (CLI) | payer OTHER | END | disposition home or self-care (01) | LOC: WOUNDCARE 02:58 | DX: E11.622 Type 2 diabetes mellitus with other skin ulcer (principal); L97.811 Non-pressure chronic ulcer of other part of right lower leg limited to breakdown of skin; I10 Essential (primary) hypertension; E11.319 Type 2 diabetes mellitus with unspecified diabetic retinopathy without macular edema; Z72.89 Other problems related to lifestyle ==

== ENCOUNTER → 2017-08-19 | Outpatient (CLI) | payer OTHER | END | disposition home or self-care (01) | LOC: RESCLI 01:56 | DX: R20.2 Paresthesia of skin (principal); R20.0 Anesthesia of skin; E55.9 Vitamin D deficiency, unspecified; E11.43 Type 2 diabetes mellitus with diabetic autonomic (poly)neuropathy; E66.01 Morbid (severe) obesity due to excess calories; I87.8 Other specified disorders of veins; L97.201 Non-pressure chronic ulcer of unspecified calf limited to breakdown of skin; I50.32 Chronic diastolic (congestive) heart failure; I11.0 Hypertensive heart disease with heart failure; M47.812 Spondylosis without myelopathy or radiculopathy, cervical region ==

== ENCOUNTER → 2017-08-22 | Outpatient (CLI) | payer OTHER | END | disposition home or self-care (01) | LOC: WOUNDCARE 02:46 | DX: I87.2 Venous insufficiency (chronic) (peripheral) (principal); E11.622 Type 2 diabetes mellitus with other skin ulcer; L97.811 Non-pressure chronic ulcer of other part of right lower leg limited to breakdown of skin; Z68.39 Body mass index [BMI] 39.0-39.9, adult; I10 Essential (primary) hypertension; E11.319 Type 2 diabetes mellitus with unspecified diabetic retinopathy without macular edema; Z72.89 Other problems related to lifestyle ==

== ENCOUNTER → 2017-08-29 | Outpatient (CLI) | payer OTHER | END | disposition home or self-care (01) | LOC: WOUNDCARE 01:07 | DX: I87.331 Chronic venous hypertension (idiopathic) with ulcer and inflammation of right lower extremity (principal); L97.212 Non-pressure chronic ulcer of right calf with fat layer exposed; E11.622 Type 2 diabetes mellitus with other skin ulcer; E11.319 Type 2 diabetes mellitus with unspecified diabetic retinopathy without macular edema; Z72.89 Other problems related to lifestyle ==

== ENCOUNTER → 2017-09-03 | Outpatient (CLI) | payer OTHER | END | disposition home or self-care (01) | LOC: WOUNDCARE 01:11 | DX: I87.313 Chronic venous hypertension (idiopathic) with ulcer of bilateral lower extremity (principal); E11.622 Type 2 diabetes mellitus with other skin ulcer; L97.212 Non-pressure chronic ulcer of right calf with fat layer exposed; L97.222 Non-pressure chronic ulcer of left calf with fat layer exposed; E11.319 Type 2 diabetes mellitus with unspecified diabetic retinopathy without macular edema; Z72.89 Other problems related to lifestyle ==

== ENCOUNTER → 2017-09-09 | Outpatient (CLI) | payer OTHER | END | disposition home or self-care (01) | LOC: RESCLI 01:59 | DX: Z23 Encounter for immunization (principal); I87.2 Venous insufficiency (chronic) (peripheral); I87.331 Chronic venous hypertension (idiopathic) with ulcer and inflammation of right lower extremity; I87.332 Chronic venous hypertension (idiopathic) with ulcer and inflammation of left lower extremity; R20.0 Anesthesia of skin; R20.2 Paresthesia of skin; L97.212 Non-pressure chronic ulcer of right calf with fat layer exposed; E55.9 Vitamin D deficiency, unspecified; L97.222 Non-pressure chronic ulcer of left calf with fat layer exposed; E11.43 Type 2 diabetes mellitus with diabetic autonomic (poly)neuropathy; L97.911 Non-pressure chronic ulcer of unspecified part of right lower leg limited to breakdown of skin; E66.01 Morbid (severe) obesity due to excess calories; I87.8 Other specified disorders of veins; I11.0 Hypertensive heart disease with heart failure; I50.32 Chronic diastolic (congestive) heart failure; E11.8 Type 2 diabetes mellitus with unspecified complications; M47.812 Spondylosis without myelopathy or radiculopathy, cervical region; R42 Dizziness and giddiness; R00.0 Tachycardia, unspecified ==

== ENCOUNTER → 2017-09-12 | Outpatient (CLI) | payer OTHER | LOC: WOUNDCARE 01:54 | DX: I87.331 Chronic venous hypertension (idiopathic) with ulcer and inflammation of right lower extremity (principal); E11.622 Type 2 diabetes mellitus with other skin ulcer; L97.212 Non-pressure chronic ulcer of right calf with fat layer exposed; I10 Essential (primary) hypertension; E11.319 Type 2 diabetes mellitus with unspecified diabetic retinopathy without macular edema; Z72.89 Other problems related to lifestyle ==

== ENCOUNTER → 2017-09-17 | Outpatient (CLI) | payer OTHER | LOC: RESCLI 03:54 | DX: I87.2 Venous insufficiency (chronic) (peripheral) (principal); I11.0 Hypertensive heart disease with heart failure; I50.32 Chronic diastolic (congestive) heart failure; E11.43 Type 2 diabetes mellitus with diabetic autonomic (poly)neuropathy; R20.2 Paresthesia of skin; R20.0 Anesthesia of skin; E55.9 Vitamin D deficiency, unspecified; E66.01 Morbid (severe) obesity due to excess calories; I87.8 Other specified disorders of veins; E11.8 Type 2 diabetes mellitus with unspecified complications; M47.812 Spondylosis without myelopathy or radiculopathy, cervical region; R42 Dizziness and giddiness; B35.1 Tinea unguium ==

== ENCOUNTER → 2017-09-19 | Outpatient (CLI) | payer OTHER | LOC: WOUNDCARE 07:03 | DX: E11.622 Type 2 diabetes mellitus with other skin ulcer (principal); L97.212 Non-pressure chronic ulcer of right calf with fat layer exposed; E11.319 Type 2 diabetes mellitus with unspecified diabetic retinopathy without macular edema; Z72.89 Other problems related to lifestyle; I10 Essential (primary) hypertension ==

== ENCOUNTER → 2017-09-26 | Outpatient (CLI) | payer OTHER | END | disposition home or self-care (01) | LOC: WOUNDCARE 00:14 | DX: E11.622 Type 2 diabetes mellitus with other skin ulcer (principal); L97.212 Non-pressure chronic ulcer of right calf with fat layer exposed; I10 Essential (primary) hypertension; E11.319 Type 2 diabetes mellitus with unspecified diabetic retinopathy without macular edema; Z72.89 Other problems related to lifestyle ==

== ENCOUNTER → 2017-10-01 | Outpatient (CLI) | payer OTHER | END | disposition home or self-care (01) | LOC: RESCLI 02:06 | DX: I11.0 Hypertensive heart disease with heart failure (principal); I50.32 Chronic diastolic (congestive) heart failure; I87.2 Venous insufficiency (chronic) (peripheral); M47.812 Spondylosis without myelopathy or radiculopathy, cervical region; E11.8 Type 2 diabetes mellitus with unspecified complications; E11.43 Type 2 diabetes mellitus with diabetic autonomic (poly)neuropathy; E66.01 Morbid (severe) obesity due to excess calories; I87.8 Other specified disorders of veins; R42 Dizziness and giddiness; B35.1 Tinea unguium; L03.115 Cellulitis of right lower limb; R20.2 Paresthesia of skin; R20.0 Anesthesia of skin; E55.9 Vitamin D deficiency, unspecified ==

== ENCOUNTER → 2017-10-10 | Outpatient (CLI) | payer OTHER | END | disposition home or self-care (01) | LOC: WOUNDCARE 01:14 | DX: E11.622 Type 2 diabetes mellitus with other skin ulcer (principal); L97.212 Non-pressure chronic ulcer of right calf with fat layer exposed; L97.222 Non-pressure chronic ulcer of left calf with fat layer exposed; I10 Essential (primary) hypertension; E11.319 Type 2 diabetes mellitus with unspecified diabetic retinopathy without macular edema; Z72.89 Other problems related to lifestyle ==

== ENCOUNTER → 2017-10-22 | Outpatient (CLI) | payer OTHER | END | disposition home or self-care (01) | LOC: WOUNDCARE 09:43 | DX: I87.331 Chronic venous hypertension (idiopathic) with ulcer and inflammation of right lower extremity (principal); E11.622 Type 2 diabetes mellitus with other skin ulcer; L97.811 Non-pressure chronic ulcer of other part of right lower leg limited to breakdown of skin; I10 Essential (primary) hypertension; E11.319 Type 2 diabetes mellitus with unspecified diabetic retinopathy without macular edema; Z72.89 Other problems related to lifestyle ==

== ENCOUNTER → 2017-10-25 | Outpatient (CLI) | payer OTHER ==
[2017-10-25 12:57] LABS: ALBUMIN 3.4 gm/dl (3.1-4.5); ALKALINE PHOSPHATASE 93 U/L (45-117); BUN 14 mg/dl (7-24); CHLORIDE 100 mmol/L (98-107); CHOLESTEROL 134 mg/dL (<200); POTASSIUM 3.8 mmol/L (3.5-5.1); SGOT/AST 38 IU/L (3-35); SGPT/ALT 40 U/L (12-78); SODIUM 138 mmol/L (136-145); TOTAL PROTEIN 7.7 gm/dL (6.4-8.2); TRIGLYCERIDES 87 mg/dl (<150); VLDL CHOLESTEROL 17 mg/dL (6-40)
[2017-10-25 12:58] LABS: HDL CHOLESTEROL 46 mg/dl (40-60); LDL CHOLESTEROL 71 mg/dL (9-159)
== END | disposition home or self-care (01) ==
LOC: LAB 12:07
PROVIDERS: Internal Medicine
DX: I10 Essential (primary) hypertension (principal); E11.8 Type 2 diabetes mellitus with unspecified complications; E55.9 Vitamin D deficiency, unspecified

== ENCOUNTER → 2017-10-29 | Outpatient (CLI) | payer OTHER | END | disposition home or self-care (01) | LOC: RESCLI 01:29 | DX: I87.2 Venous insufficiency (chronic) (peripheral) (principal); R20.2 Paresthesia of skin; R20.0 Anesthesia of skin; E55.9 Vitamin D deficiency, unspecified; E11.43 Type 2 diabetes mellitus with diabetic autonomic (poly)neuropathy; E66.01 Morbid (severe) obesity due to excess calories; I87.8 Other specified disorders of veins; I11.0 Hypertensive heart disease with heart failure; I50.32 Chronic diastolic (congestive) heart failure; M47.812 Spondylosis without myelopathy or radiculopathy, cervical region; R42 Dizziness and giddiness; B35.1 Tinea unguium ==

== ENCOUNTER → 2017-11-05 | Outpatient (CLI) | payer OTHER | END | disposition home or self-care (01) | LOC: WOUNDCARE 04:01 | DX: I87.331 Chronic venous hypertension (idiopathic) with ulcer and inflammation of right lower extremity (principal); L97.811 Non-pressure chronic ulcer of other part of right lower leg limited to breakdown of skin; E11.319 Type 2 diabetes mellitus with unspecified diabetic retinopathy without macular edema; I10 Essential (primary) hypertension; Z72.89 Other problems related to lifestyle ==

== ENCOUNTER → 2017-11-21 | Outpatient (CLI) | payer OTHER | END | disposition home or self-care (01) | LOC: WOUNDCARE 02:01 | DX: E11.622 Type 2 diabetes mellitus with other skin ulcer (principal); I87.331 Chronic venous hypertension (idiopathic) with ulcer and inflammation of right lower extremity; L97.811 Non-pressure chronic ulcer of other part of right lower leg limited to breakdown of skin; E11.319 Type 2 diabetes mellitus with unspecified diabetic retinopathy without macular edema; I10 Essential (primary) hypertension; Z72.89 Other problems related to lifestyle ==

== ENCOUNTER → 2017-11-26 | Outpatient (CLI) | payer OTHER | END | disposition home or self-care (01) | LOC: RESCLI 03:18 | DX: I87.2 Venous insufficiency (chronic) (peripheral) (principal); R20.2 Paresthesia of skin; R20.0 Anesthesia of skin; I11.0 Hypertensive heart disease with heart failure; I50.32 Chronic diastolic (congestive) heart failure; E55.9 Vitamin D deficiency, unspecified; E11.43 Type 2 diabetes mellitus with diabetic autonomic (poly)neuropathy; E66.01 Morbid (severe) obesity due to excess calories; I87.8 Other specified disorders of veins; M47.812 Spondylosis without myelopathy or radiculopathy, cervical region; B35.1 Tinea unguium; M79.602 Pain in left arm ==

== ENCOUNTER → 2017-12-05 | Outpatient (CLI) | payer OTHER | END | disposition home or self-care (01) | LOC: WOUNDCARE 00:43 | DX: E11.622 Type 2 diabetes mellitus with other skin ulcer (principal); I87.331 Chronic venous hypertension (idiopathic) with ulcer and inflammation of right lower extremity; L97.811 Non-pressure chronic ulcer of other part of right lower leg limited to breakdown of skin; E11.319 Type 2 diabetes mellitus with unspecified diabetic retinopathy without macular edema; Z72.89 Other problems related to lifestyle ==

== ENCOUNTER → 2017-12-10 | Outpatient (CLI) | payer OTHER | END | disposition home or self-care (01) | LOC: RESCLI 02:19 | DX: I87.2 Venous insufficiency (chronic) (peripheral) (principal); I10 Essential (primary) hypertension; E55.9 Vitamin D deficiency, unspecified; E11.43 Type 2 diabetes mellitus with diabetic autonomic (poly)neuropathy; E66.01 Morbid (severe) obesity due to excess calories; I87.8 Other specified disorders of veins; I50.32 Chronic diastolic (congestive) heart failure; E11.8 Type 2 diabetes mellitus with unspecified complications; B35.1 Tinea unguium; M15.0 Primary generalized (osteo)arthritis; G56.03 Carpal tunnel syndrome, bilateral upper limbs ==

== ENCOUNTER → 2017-12-12 | Outpatient (CLI) | payer OTHER | END | disposition home or self-care (01) | LOC: WOUNDCARE 03:37 | DX: E11.622 Type 2 diabetes mellitus with other skin ulcer (principal); I87.331 Chronic venous hypertension (idiopathic) with ulcer and inflammation of right lower extremity; L97.811 Non-pressure chronic ulcer of other part of right lower leg limited to breakdown of skin; E11.319 Type 2 diabetes mellitus with unspecified diabetic retinopathy without macular edema; Z72.89 Other problems related to lifestyle ==

== ENCOUNTER → 2017-12-19 | Outpatient (CLI) | payer OTHER | LOC: WOUNDCARE 00:32 | DX: I87.331 Chronic venous hypertension (idiopathic) with ulcer and inflammation of right lower extremity (principal); E11.622 Type 2 diabetes mellitus with other skin ulcer; L97.811 Non-pressure chronic ulcer of other part of right lower leg limited to breakdown of skin; E11.319 Type 2 diabetes mellitus with unspecified diabetic retinopathy without macular edema; Z72.89 Other problems related to lifestyle ==

== ENCOUNTER → 2017-12-26 | Outpatient (CLI) | payer OTHER | END | disposition home or self-care (01) | LOC: WOUNDCARE 02:42 | DX: E11.622 Type 2 diabetes mellitus with other skin ulcer (principal); I87.331 Chronic venous hypertension (idiopathic) with ulcer and inflammation of right lower extremity; L97.811 Non-pressure chronic ulcer of other part of right lower leg limited to breakdown of skin; L97.821 Non-pressure chronic ulcer of other part of left lower leg limited to breakdown of skin; E11.319 Type 2 diabetes mellitus with unspecified diabetic retinopathy without macular edema; Z72.89 Other problems related to lifestyle ==

== ENCOUNTER → 2018-01-09 | Outpatient (CLI) | payer OTHER | END | disposition home or self-care (01) | LOC: WOUNDCARE 02:08 | DX: I87.333 Chronic venous hypertension (idiopathic) with ulcer and inflammation of bilateral lower extremity (principal); E11.622 Type 2 diabetes mellitus with other skin ulcer; L97.821 Non-pressure chronic ulcer of other part of left lower leg limited to breakdown of skin; L97.811 Non-pressure chronic ulcer of other part of right lower leg limited to breakdown of skin; E11.319 Type 2 diabetes mellitus with unspecified diabetic retinopathy without macular edema; I10 Essential (primary) hypertension ==

== ENCOUNTER → 2018-01-16 | Outpatient (CLI) | payer OTHER | END | disposition home or self-care (01) | LOC: WOUNDCARE 01:29 | DX: E11.622 Type 2 diabetes mellitus with other skin ulcer (principal); I87.331 Chronic venous hypertension (idiopathic) with ulcer and inflammation of right lower extremity; L97.811 Non-pressure chronic ulcer of other part of right lower leg limited to breakdown of skin; S81.802A Unspecified open wound, left lower leg, initial encounter; E11.319 Type 2 diabetes mellitus with unspecified diabetic retinopathy without macular edema ==

== ENCOUNTER → 2018-01-23 | Outpatient (CLI) | payer OTHER | END | disposition home or self-care (01) | LOC: LAB 01:30 | DX: E55.9 Vitamin D deficiency, unspecified (principal); E11.8 Type 2 diabetes mellitus with unspecified complications ==

== ENCOUNTER → 2018-01-27 | Outpatient (CLI) | payer OTHER | END | disposition home or self-care (01) | LOC: RESCLI 00:43 | DX: I87.2 Venous insufficiency (chronic) (peripheral) (principal); E55.9 Vitamin D deficiency, unspecified; E11.43 Type 2 diabetes mellitus with diabetic autonomic (poly)neuropathy; E66.01 Morbid (severe) obesity due to excess calories; I87.8 Other specified disorders of veins; I11.0 Hypertensive heart disease with heart failure; I50.32 Chronic diastolic (congestive) heart failure; B35.1 Tinea unguium; M15.0 Primary generalized (osteo)arthritis; G56.03 Carpal tunnel syndrome, bilateral upper limbs ==

== ENCOUNTER → 2018-01-30 | Outpatient (CLI) | payer OTHER | END | disposition home or self-care (01) | LOC: WOUNDCARE 00:24 | DX: E11.622 Type 2 diabetes mellitus with other skin ulcer (principal); L97.811 Non-pressure chronic ulcer of other part of right lower leg limited to breakdown of skin; E11.319 Type 2 diabetes mellitus with unspecified diabetic retinopathy without macular edema; I10 Essential (primary) hypertension ==

== ENCOUNTER → 2018-02-06 | Outpatient (CLI) | payer OTHER | END | disposition home or self-care (01) | LOC: WOUNDCARE 04:39 | DX: I87.331 Chronic venous hypertension (idiopathic) with ulcer and inflammation of right lower extremity (principal); E11.622 Type 2 diabetes mellitus with other skin ulcer; L97.811 Non-pressure chronic ulcer of other part of right lower leg limited to breakdown of skin; E11.319 Type 2 diabetes mellitus with unspecified diabetic retinopathy without macular edema; I10 Essential (primary) hypertension ==

== ENCOUNTER 2018-02-13 12:14 | Emergency (ER) | payer OTHER ==
[~2018-02-13] VITALS: Ht 185.4 cm; Wt 158.8 kg
== END 2018-02-13 13:36 | disposition home or self-care (01) ==
LOC: ED 12:14
DX: G47.30 Sleep apnea, unspecified (principal); I10 Essential (primary) hypertension; E66.01 Morbid (severe) obesity due to excess calories; E11.65 Type 2 diabetes mellitus with hyperglycemia; Z68.41 Body mass index [BMI] 40.0-44.9, adult; Z90.49 Acquired absence of other specified parts of digestive tract; Z98.890 Other specified postprocedural states; Z79.899 Other long term (current) drug therapy

== ENCOUNTER → 2018-02-13 | Outpatient (CLI) | payer OTHER | END | disposition home or self-care (01) | LOC: WOUNDCARE 00:24 | DX: I87.331 Chronic venous hypertension (idiopathic) with ulcer and inflammation of right lower extremity (principal); E11.622 Type 2 diabetes mellitus with other skin ulcer; L97.811 Non-pressure chronic ulcer of other part of right lower leg limited to breakdown of skin; E11.319 Type 2 diabetes mellitus with unspecified diabetic retinopathy without macular edema ==

== ENCOUNTER → 2018-02-20 | Outpatient (CLI) | payer OTHER | END | disposition home or self-care (01) | LOC: WOUNDCARE 02:33 | DX: E11.622 Type 2 diabetes mellitus with other skin ulcer (principal); I87.331 Chronic venous hypertension (idiopathic) with ulcer and inflammation of right lower extremity; L97.811 Non-pressure chronic ulcer of other part of right lower leg limited to breakdown of skin; E11.319 Type 2 diabetes mellitus with unspecified diabetic retinopathy without macular edema ==

== ENCOUNTER → 2018-02-27 | Outpatient (CLI) | payer OTHER | END | disposition home or self-care (01) | LOC: WOUNDCARE 01:17 | DX: I87.331 Chronic venous hypertension (idiopathic) with ulcer and inflammation of right lower extremity (principal); L97.811 Non-pressure chronic ulcer of other part of right lower leg limited to breakdown of skin; E11.622 Type 2 diabetes mellitus with other skin ulcer; E11.319 Type 2 diabetes mellitus with unspecified diabetic retinopathy without macular edema; I10 Essential (primary) hypertension ==

== ENCOUNTER → 2018-03-06 | Outpatient (CLI) | payer OTHER | END | disposition home or self-care (01) | LOC: WOUNDCARE 02:47 | DX: E11.622 Type 2 diabetes mellitus with other skin ulcer (principal); I87.331 Chronic venous hypertension (idiopathic) with ulcer and inflammation of right lower extremity; L97.811 Non-pressure chronic ulcer of other part of right lower leg limited to breakdown of skin; E11.319 Type 2 diabetes mellitus with unspecified diabetic retinopathy without macular edema ==

== ENCOUNTER 2018-03-13 15:16 | Emergency (ER) | payer OTHER ==
[~2018-03-13] VITALS: Ht 185.4 cm; Wt 158.8 kg
== END 2018-03-13 15:43 | disposition home or self-care (01) ==
LOC: ED 15:16
DX: S91.332A Puncture wound without foreign body, left foot, initial encounter (principal); I10 Essential (primary) hypertension; E11.9 Type 2 diabetes mellitus without complications; E66.9 Obesity, unspecified; Z23 Encounter for immunization; Z68.41 Body mass index [BMI] 40.0-44.9, adult; Z79.899 Other long term (current) drug therapy; W45.0XXA Nail entering through skin, initial encounter; Y93.89 Activity, other specified; Y92.89 Other specified places as the place of occurrence of the external cause; Y99.8 Other external cause status

== ENCOUNTER → 2018-03-13 | Outpatient (CLI) | payer OTHER | END | disposition home or self-care (01) | LOC: WOUNDCARE 03:45 | DX: I87.331 Chronic venous hypertension (idiopathic) with ulcer and inflammation of right lower extremity (principal); E11.621 Type 2 diabetes mellitus with foot ulcer; L97.511 Non-pressure chronic ulcer of other part of right foot limited to breakdown of skin; S91.102A Unspecified open wound of left great toe without damage to nail, initial encounter; E11.319 Type 2 diabetes mellitus with unspecified diabetic retinopathy without macular edema; W21.31XA Struck by shoe cleats, initial encounter; Y93.89 Activity, other specified; Y92.89 Other specified places as the place of occurrence of the external cause; Y99.8 Other external cause status ==

== ENCOUNTER → 2018-03-18 | Outpatient (CLI) | payer OTHER | END | disposition home or self-care (01) | LOC: WOUNDCARE 04:39 | DX: E11.622 Type 2 diabetes mellitus with other skin ulcer (principal); L97.812 Non-pressure chronic ulcer of other part of right lower leg with fat layer exposed; I87.331 Chronic venous hypertension (idiopathic) with ulcer and inflammation of right lower extremity; S91.102D Unspecified open wound of left great toe without damage to nail, subsequent encounter; E11.319 Type 2 diabetes mellitus with unspecified diabetic retinopathy without macular edema; X58.XXXD Exposure to other specified factors, subsequent encounter ==

== ENCOUNTER → 2018-03-20 | Outpatient (CLI) | payer OTHER | END | disposition home or self-care (01) | LOC: US 08:19 | DX: I73.9 Peripheral vascular disease, unspecified (principal); L97.919 Non-pressure chronic ulcer of unspecified part of right lower leg with unspecified severity ==

== ENCOUNTER → 2018-03-27 | Outpatient (CLI) | payer OTHER | END | disposition home or self-care (01) | LOC: WOUNDCARE 00:38 | DX: I87.331 Chronic venous hypertension (idiopathic) with ulcer and inflammation of right lower extremity (principal); E11.622 Type 2 diabetes mellitus with other skin ulcer; L97.811 Non-pressure chronic ulcer of other part of right lower leg limited to breakdown of skin; S91.102D Unspecified open wound of left great toe without damage to nail, subsequent encounter; E11.319 Type 2 diabetes mellitus with unspecified diabetic retinopathy without macular edema; X58.XXXD Exposure to other specified factors, subsequent encounter ==

== ENCOUNTER → 2018-04-03 | Outpatient (CLI) | payer OTHER | END | disposition home or self-care (01) | LOC: WOUNDCARE 00:43 | DX: E11.622 Type 2 diabetes mellitus with other skin ulcer (principal); I87.331 Chronic venous hypertension (idiopathic) with ulcer and inflammation of right lower extremity; L97.811 Non-pressure chronic ulcer of other part of right lower leg limited to breakdown of skin; S91.102D Unspecified open wound of left great toe without damage to nail, subsequent encounter; I10 Essential (primary) hypertension; E11.319 Type 2 diabetes mellitus with unspecified diabetic retinopathy without macular edema; X58.XXXD Exposure to other specified factors, subsequent encounter ==

== ENCOUNTER → 2018-04-10 | Outpatient (CLI) | payer OTHER | END | disposition home or self-care (01) | LOC: WOUNDCARE 01:13 | DX: I87.331 Chronic venous hypertension (idiopathic) with ulcer and inflammation of right lower extremity (principal); E11.622 Type 2 diabetes mellitus with other skin ulcer; L97.811 Non-pressure chronic ulcer of other part of right lower leg limited to breakdown of skin; E11.621 Type 2 diabetes mellitus with foot ulcer; L97.521 Non-pressure chronic ulcer of other part of left foot limited to breakdown of skin; E11.319 Type 2 diabetes mellitus with unspecified diabetic retinopathy without macular edema; Z68.42 Body mass index [BMI] 45.0-49.9, adult ==

== ENCOUNTER → 2018-04-17 | Outpatient (CLI) | payer OTHER ==
[2018-04-17 10:44] LABS: ALBUMIN 3.4 gm/dl (3.1-4.5); CREATININE 1.51 mg/dL (0.70-1.30); POTASSIUM 4.5 mmol/L (3.5-5.1); TOTAL PROTEIN 7.7 gm/dL (6.4-8.2)
== END | disposition home or self-care (01) ==
LOC: LAB 04:44 → WOUNDCARE 04:44
PROVIDERS: Internal Medicine
DX: E55.9 Vitamin D deficiency, unspecified (principal); E11.8 Type 2 diabetes mellitus with unspecified complications

== ENCOUNTER → 2018-04-24 | Outpatient (CLI) | payer OTHER | END | disposition home or self-care (01) | LOC: WOUNDCARE 01:49 | DX: I87.331 Chronic venous hypertension (idiopathic) with ulcer and inflammation of right lower extremity (principal); E11.622 Type 2 diabetes mellitus with other skin ulcer; L97.811 Non-pressure chronic ulcer of other part of right lower leg limited to breakdown of skin; E11.621 Type 2 diabetes mellitus with foot ulcer; L97.528 Non-pressure chronic ulcer of other part of left foot with other specified severity; E11.319 Type 2 diabetes mellitus with unspecified diabetic retinopathy without macular edema ==

== ENCOUNTER → 2018-05-01 | Outpatient (CLI) | payer OTHER | END | disposition home or self-care (01) | LOC: WOUNDCARE 04:05 | DX: I87.331 Chronic venous hypertension (idiopathic) with ulcer and inflammation of right lower extremity (principal); E11.622 Type 2 diabetes mellitus with other skin ulcer; L97.211 Non-pressure chronic ulcer of right calf limited to breakdown of skin; S91.102D Unspecified open wound of left great toe without damage to nail, subsequent encounter; E11.319 Type 2 diabetes mellitus with unspecified diabetic retinopathy without macular edema; X58.XXXD Exposure to other specified factors, subsequent encounter ==

== ENCOUNTER → 2018-05-08 | Outpatient (CLI) | payer OTHER | END | disposition home or self-care (01) | LOC: WOUNDCARE 01:47 | DX: I87.331 Chronic venous hypertension (idiopathic) with ulcer and inflammation of right lower extremity (principal); E11.622 Type 2 diabetes mellitus with other skin ulcer; L97.811 Non-pressure chronic ulcer of other part of right lower leg limited to breakdown of skin; S91.102D Unspecified open wound of left great toe without damage to nail, subsequent encounter; E11.319 Type 2 diabetes mellitus with unspecified diabetic retinopathy without macular edema; X58.XXXD Exposure to other specified factors, subsequent encounter ==

== ENCOUNTER → 2018-05-15 | Outpatient (CLI) | payer OTHER | END | disposition home or self-care (01) | LOC: WOUNDCARE 03:54 | DX: I87.331 Chronic venous hypertension (idiopathic) with ulcer and inflammation of right lower extremity (principal); E11.622 Type 2 diabetes mellitus with other skin ulcer; L97.811 Non-pressure chronic ulcer of other part of right lower leg limited to breakdown of skin; L97.211 Non-pressure chronic ulcer of right calf limited to breakdown of skin; S91.102D Unspecified open wound of left great toe without damage to nail, subsequent encounter; E11.319 Type 2 diabetes mellitus with unspecified diabetic retinopathy without macular edema; X58.XXXD Exposure to other specified factors, subsequent encounter ==

== ENCOUNTER → 2018-06-19 | Outpatient (CLI) | payer OTHER | LOC: WOUNDCARE 05:14 | DX: E11.622 Type 2 diabetes mellitus with other skin ulcer (principal); L97.211 Non-pressure chronic ulcer of right calf limited to breakdown of skin; L97.821 Non-pressure chronic ulcer of other part of left lower leg limited to breakdown of skin; I87.331 Chronic venous hypertension (idiopathic) with ulcer and inflammation of right lower extremity; E11.319 Type 2 diabetes mellitus with unspecified diabetic retinopathy without macular edema ==

== ENCOUNTER → 2018-06-26 | Outpatient (CLI) | payer OTHER | END | disposition home or self-care (01) | LOC: WOUNDCARE 08:36 | DX: E11.622 Type 2 diabetes mellitus with other skin ulcer (principal); L97.211 Non-pressure chronic ulcer of right calf limited to breakdown of skin; L97.821 Non-pressure chronic ulcer of other part of left lower leg limited to breakdown of skin; I87.333 Chronic venous hypertension (idiopathic) with ulcer and inflammation of bilateral lower extremity; E11.319 Type 2 diabetes mellitus with unspecified diabetic retinopathy without macular edema ==

== ENCOUNTER → 2018-07-03 | Outpatient (CLI) | payer OTHER | END | disposition home or self-care (01) | LOC: WOUNDCARE 03:42 | DX: E11.622 Type 2 diabetes mellitus with other skin ulcer (principal); L97.211 Non-pressure chronic ulcer of right calf limited to breakdown of skin; L97.828 Non-pressure chronic ulcer of other part of left lower leg with other specified severity; I87.333 Chronic venous hypertension (idiopathic) with ulcer and inflammation of bilateral lower extremity; E11.319 Type 2 diabetes mellitus with unspecified diabetic retinopathy without macular edema ==

== ENCOUNTER → 2018-07-10 | Outpatient (CLI) | payer OTHER ==
[2018-07-10 10:06] LABS: ALBUMIN 3.3 gm/dl (3.1-4.5); BUN 14 mg/dl (7-24); CHLORIDE 105 mmol/L (98-107); CHOLESTEROL 119 mg/dL (<200); CREATININE 0.95 mg/dL (0.70-1.30); POTASSIUM 4.4 mmol/L (3.5-5.1); SGOT/AST 72 IU/L (3-35); SGPT/ALT 56 U/L (12-78); SODIUM 139 mmol/L (136-145); TOTAL PROTEIN 7.8 gm/dL (6.4-8.2); TRIGLYCERIDES 142 mg/dl (<150); VLDL CHOLESTEROL 28 mg/dL (6-40)
[2018-07-10 10:09] LABS: ALKALINE PHOSPHATASE 67 U/L (45-117); HDL CHOLESTEROL 34 mg/dl (40-60); LDL CHOLESTEROL 57 mg/dL (9-159)
== END | disposition home or self-care (01) ==
LOC: LAB 00:34 → WOUNDCARE 00:34
DX: I87.331 Chronic venous hypertension (idiopathic) with ulcer and inflammation of right lower extremity (principal); L97.211 Non-pressure chronic ulcer of right calf limited to breakdown of skin; E11.622 Type 2 diabetes mellitus with other skin ulcer; I87.2 Venous insufficiency (chronic) (peripheral); E11.319 Type 2 diabetes mellitus with unspecified diabetic retinopathy without macular edema; I10 Essential (primary) hypertension; Z68.41 Body mass index [BMI] 40.0-44.9, adult; S91.102D Unspecified open wound of left great toe without damage to nail, subsequent encounter; X58.XXXD Exposure to other specified factors, subsequent encounter

== ENCOUNTER → 2018-07-17 | Outpatient (CLI) | payer OTHER | END | disposition home or self-care (01) | LOC: WOUNDCARE 04:46 | DX: E11.622 Type 2 diabetes mellitus with other skin ulcer (principal); L97.211 Non-pressure chronic ulcer of right calf limited to breakdown of skin; I87.331 Chronic venous hypertension (idiopathic) with ulcer and inflammation of right lower extremity; S91.102D Unspecified open wound of left great toe without damage to nail, subsequent encounter; E11.319 Type 2 diabetes mellitus with unspecified diabetic retinopathy without macular edema; Z68.41 Body mass index [BMI] 40.0-44.9, adult ==

== ENCOUNTER → 2018-07-18 | Outpatient (CLI) | payer OTHER | END | disposition home or self-care (01) | LOC: RESCLI 01:51 | DX: I13.0 Hypertensive heart and chronic kidney disease with heart failure and stage 1 through stage 4 chronic kidney disease, or unspecified chronic kidney disease (principal); E11.22 Type 2 diabetes mellitus with diabetic chronic kidney disease; N18.3 Chronic kidney disease, stage 3 (moderate); I50.32 Chronic diastolic (congestive) heart failure; G47.30 Sleep apnea, unspecified; E55.9 Vitamin D deficiency, unspecified; I87.2 Venous insufficiency (chronic) (peripheral); E66.01 Morbid (severe) obesity due to excess calories; R74.0 Nonspecific elevation of levels of transaminase and lactic acid dehydrogenase [LDH]; Z79.84 Long term (current) use of oral hypoglycemic drugs; Z79.899 Other long term (current) drug therapy; Z88.8 Allergy status to other drugs, medicaments and biological substances; Z78.9 Other specified health status ==

== ENCOUNTER → 2018-07-24 | Outpatient (CLI) | payer OTHER | END | disposition home or self-care (01) | LOC: WOUNDCARE 03:33 | DX: E11.622 Type 2 diabetes mellitus with other skin ulcer (principal); L97.211 Non-pressure chronic ulcer of right calf limited to breakdown of skin; I87.331 Chronic venous hypertension (idiopathic) with ulcer and inflammation of right lower extremity; I87.2 Venous insufficiency (chronic) (peripheral); E11.319 Type 2 diabetes mellitus with unspecified diabetic retinopathy without macular edema ==

== ENCOUNTER → 2018-07-31 | Outpatient (CLI) | payer OTHER | END | disposition home or self-care (01) | LOC: WOUNDCARE 02:45 | DX: E11.622 Type 2 diabetes mellitus with other skin ulcer (principal); L97.211 Non-pressure chronic ulcer of right calf limited to breakdown of skin; I87.331 Chronic venous hypertension (idiopathic) with ulcer and inflammation of right lower extremity; I87.2 Venous insufficiency (chronic) (peripheral); E11.319 Type 2 diabetes mellitus with unspecified diabetic retinopathy without macular edema ==

== ENCOUNTER → 2018-08-07 | Outpatient (CLI) | payer OTHER | END | disposition home or self-care (01) | LOC: WOUNDCARE 03:08 | DX: E11.622 Type 2 diabetes mellitus with other skin ulcer (principal); L97.212 Non-pressure chronic ulcer of right calf with fat layer exposed; I87.331 Chronic venous hypertension (idiopathic) with ulcer and inflammation of right lower extremity; E11.319 Type 2 diabetes mellitus with unspecified diabetic retinopathy without macular edema; I87.2 Venous insufficiency (chronic) (peripheral) ==

== ENCOUNTER → 2018-08-14 | Outpatient (CLI) | payer OTHER ==
[2018-08-14 09:57] LABS: ALBUMIN 3.4 gm/dl (3.1-4.5); ALKALINE PHOSPHATASE 82 U/L (45-117); BUN 19 mg/dl (7-24); CHLORIDE 106 mmol/L (98-107); CHOLESTEROL 118 mg/dL (<200); CREATININE 1.16 mg/dL (0.70-1.30); HDL CHOLESTEROL 33 mg/dl (40-60); LDL CHOLESTEROL 59 mg/dL (9-159); POTASSIUM 4.3 mmol/L (3.5-5.1); SGOT/AST 37 IU/L (3-35); SGPT/ALT 44 U/L (12-78); SODIUM 138 mmol/L (136-145); TOTAL PROTEIN 7.5 gm/dL (6.4-8.2); TRIGLYCERIDES 131 mg/dl (<150); VLDL CHOLESTEROL 26 mg/dL (6-40)
[2018-08-15 07:07] LABS: HEPATITIS B SURFACE AG Negative (Negative); HEPATITIS C VIRUS ANTIBODY <0.1 s/co (0.0-0.9)
== END | disposition home or self-care (01) ==
LOC: LAB 03:27 → WOUNDCARE 03:27
PROVIDERS: Student in an Organized Health Care Education/Training Program
DX: E11.8 Type 2 diabetes mellitus with unspecified complications (principal); E55.9 Vitamin D deficiency, unspecified; R74.0 Nonspecific elevation of levels of transaminase and lactic acid dehydrogenase [LDH]

== ENCOUNTER → 2018-08-21 | Outpatient (CLI) | payer OTHER | END | disposition home or self-care (01) | LOC: WOUNDCARE 02:20 | DX: E11.622 Type 2 diabetes mellitus with other skin ulcer (principal); I87.331 Chronic venous hypertension (idiopathic) with ulcer and inflammation of right lower extremity; L97.211 Non-pressure chronic ulcer of right calf limited to breakdown of skin; I87.2 Venous insufficiency (chronic) (peripheral); E11.319 Type 2 diabetes mellitus with unspecified diabetic retinopathy without macular edema ==

== ENCOUNTER → 2018-08-22 | Outpatient (CLI) | payer OTHER | END | disposition home or self-care (01) | LOC: RESCLI 03:31 | DX: I10 Essential (primary) hypertension (principal); E66.01 Morbid (severe) obesity due to excess calories; E11.9 Type 2 diabetes mellitus without complications; E55.9 Vitamin D deficiency, unspecified; L97.201 Non-pressure chronic ulcer of unspecified calf limited to breakdown of skin; M47.812 Spondylosis without myelopathy or radiculopathy, cervical region; G47.30 Sleep apnea, unspecified; G56.03 Carpal tunnel syndrome, bilateral upper limbs; G62.9 Polyneuropathy, unspecified; Z79.899 Other long term (current) drug therapy; Z79.84 Long term (current) use of oral hypoglycemic drugs; Z88.8 Allergy status to other drugs, medicaments and biological substances ==

== ENCOUNTER → 2018-09-11 | Outpatient (CLI) | payer OTHER | END | disposition home or self-care (01) | LOC: WOUNDCARE 01:19 | DX: E11.622 Type 2 diabetes mellitus with other skin ulcer (principal); L97.218 Non-pressure chronic ulcer of right calf with other specified severity; I87.331 Chronic venous hypertension (idiopathic) with ulcer and inflammation of right lower extremity; I87.2 Venous insufficiency (chronic) (peripheral); E11.319 Type 2 diabetes mellitus with unspecified diabetic retinopathy without macular edema ==

== ENCOUNTER → 2018-09-25 | Outpatient (CLI) | payer OTHER | END | disposition home or self-care (01) | LOC: RESCLI 01:18 | DX: I13.0 Hypertensive heart and chronic kidney disease with heart failure and stage 1 through stage 4 chronic kidney disease, or unspecified chronic kidney disease (principal); E11.22 Type 2 diabetes mellitus with diabetic chronic kidney disease; N18.3 Chronic kidney disease, stage 3 (moderate); I50.32 Chronic diastolic (congestive) heart failure; E66.01 Morbid (severe) obesity due to excess calories; G47.30 Sleep apnea, unspecified; I87.2 Venous insufficiency (chronic) (peripheral); M15.0 Primary generalized (osteo)arthritis; I70.90 Unspecified atherosclerosis; E55.9 Vitamin D deficiency, unspecified; G62.9 Polyneuropathy, unspecified; Z79.84 Long term (current) use of oral hypoglycemic drugs; Z79.899 Other long term (current) drug therapy; Z88.8 Allergy status to other drugs, medicaments and biological substances ==

== ENCOUNTER → 2018-10-02 | Outpatient (CLI) | payer OTHER | END | disposition home or self-care (01) | LOC: WOUNDCARE 04:11 | DX: I87.331 Chronic venous hypertension (idiopathic) with ulcer and inflammation of right lower extremity (principal); L97.211 Non-pressure chronic ulcer of right calf limited to breakdown of skin; E11.622 Type 2 diabetes mellitus with other skin ulcer; I87.2 Venous insufficiency (chronic) (peripheral); E11.319 Type 2 diabetes mellitus with unspecified diabetic retinopathy without macular edema ==

== ENCOUNTER → 2018-10-16 | Outpatient (CLI) | payer OTHER ==
[~2018-10-16] MED LIST changes: +MECLIZINE HCL25 M2 PO; +Tobrex Ophth S2.5 ML OPH
== END | disposition home or self-care (01) ==
LOC: WOUNDCARE 02:57
DX: I87.333 Chronic venous hypertension (idiopathic) with ulcer and inflammation of bilateral lower extremity (principal); L97.212 Non-pressure chronic ulcer of right calf with fat layer exposed; L97.821 Non-pressure chronic ulcer of other part of left lower leg limited to breakdown of skin; E11.622 Type 2 diabetes mellitus with other skin ulcer; E11.319 Type 2 diabetes mellitus with unspecified diabetic retinopathy without macular edema; I87.2 Venous insufficiency (chronic) (peripheral); S91.102D Unspecified open wound of left great toe without damage to nail, subsequent encounter; X58.XXXD Exposure to other specified factors, subsequent encounter

== ENCOUNTER → 2018-10-23 | Outpatient (CLI) | payer OTHER ==
[~2018-10-23] MED LIST changes: -Tobrex Ophth S2.5 ML OPH
== END | disposition home or self-care (01) ==
LOC: WOUNDCARE 02:55
DX: E11.622 Type 2 diabetes mellitus with other skin ulcer (principal); L97.211 Non-pressure chronic ulcer of right calf limited to breakdown of skin; I87.331 Chronic venous hypertension (idiopathic) with ulcer and inflammation of right lower extremity; I87.2 Venous insufficiency (chronic) (peripheral); E11.319 Type 2 diabetes mellitus with unspecified diabetic retinopathy without macular edema; S91.102D Unspecified open wound of left great toe without damage to nail, subsequent encounter; S81.802D Unspecified open wound, left lower leg, subsequent encounter; X58.XXXD Exposure to other specified factors, subsequent encounter

== ENCOUNTER → 2018-10-30 | Outpatient (CLI) | payer OTHER ==
[~2018-10-30] MED LIST changes: +Tobrex Ophth S2.5 ML OPH
== END | disposition home or self-care (01) ==
LOC: RESCLI 01:57
DX: I12.9 Hypertensive chronic kidney disease with stage 1 through stage 4 chronic kidney disease, or unspecified chronic kidney disease (principal); E11.22 Type 2 diabetes mellitus with diabetic chronic kidney disease; N18.3 Chronic kidney disease, stage 3 (moderate); E11.43 Type 2 diabetes mellitus with diabetic autonomic (poly)neuropathy; E66.01 Morbid (severe) obesity due to excess calories; I87.2 Venous insufficiency (chronic) (peripheral); E55.9 Vitamin D deficiency, unspecified; L97.201 Non-pressure chronic ulcer of unspecified calf limited to breakdown of skin; G47.30 Sleep apnea, unspecified; G62.9 Polyneuropathy, unspecified; I70.90 Unspecified atherosclerosis; R60.0 Localized edema; Z79.84 Long term (current) use of oral hypoglycemic drugs; Z79.899 Other long term (current) drug therapy

== ENCOUNTER → 2018-12-04 | Outpatient (CLI) | payer OTHER | END | disposition home or self-care (01) | LOC: RESCLI 02:56 | DX: I87.331 Chronic venous hypertension (idiopathic) with ulcer and inflammation of right lower extremity (principal); I87.2 Venous insufficiency (chronic) (peripheral); I13.0 Hypertensive heart and chronic kidney disease with heart failure and stage 1 through stage 4 chronic kidney disease, or unspecified chronic kidney disease; E11.22 Type 2 diabetes mellitus with diabetic chronic kidney disease; E11.43 Type 2 diabetes mellitus with diabetic autonomic (poly)neuropathy; I50.32 Chronic diastolic (congestive) heart failure; N18.3 Chronic kidney disease, stage 3 (moderate); E55.9 Vitamin D deficiency, unspecified; E66.01 Morbid (severe) obesity due to excess calories; G47.30 Sleep apnea, unspecified; Z79.899 Other long term (current) drug therapy; Z79.82 Long term (current) use of aspirin; Z88.8 Allergy status to other drugs, medicaments and biological substances ==

== ENCOUNTER 2018-12-11 09:08 | Emergency (ER) | payer OTHER ==
[~2018-12-11] VITALS: Ht 185.4 cm; Wt 154.2 kg
--- NOTE | ~2018-12-11 | EKG ---
[place], [place] ELECTROCARDIOGRAM REPORT NAME: BRUNA BLANC UNIT #: [id number] ROOM: DOCTOR: EPIPHANY DRAFT REPORT BIRTHDATE: [birth year] 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
[~2018-12-11 09:08] MED LIST changes: -MECLIZINE HCL25 M2 PO; -Tobrex Ophth S2.5 ML OPH
[2018-12-11 09:35] LABS: BASO # 0.1 10*3/uL (0.0-0.1); EOS # 0.3 10*3/uL (0.0-0.4); EOS % 4.6 % (1.0-4.0); HEMATOCRIT 45.1 % (42.0-52.0); HEMOGLOBIN 14.6 g/dl (14.0-18.0); LYMPH # 1.9 10*3/uL (1.3-4.4); LYMPH % 27.2 % (27.0-41.0); MEAN CELL VOLUME 87.9 fl (80.0-94.0); MEAN CORPUSCULAR HGB 28.5 pg (27.0-31.0); MEAN CORPUSCULAR HGB CONC 32.4 g/dl (33.0-37.0); MEAN PLATELET VOLUME 9.8 fl (9.6-12.3); MONO # 0.5 10*3/uL (0.1-1.0); MONO % 6.5 % (3.0-9.0); NEUT # 4.2 10*3/uL (2.3-7.9); NEUT % 60.4 % (47.0-73.0); PLATELET COUNT AUTOMATED 208 10*3/uL (130-400); RED BLOOD COUNT 5.13 10*6/uL (4.50-5.90); RED CELL DISTRI WIDTH 13.2 % (0-14.5); WHITE BLOOD COUNT 6.9 10*3/uL (4.8-10.8)
[2018-12-11 10:04] LABS: ACT PARTIAL THROMBO TIME 22.7 SECONDS (20.8-31.5)
[2018-12-11 10:06] LABS: ALBUMIN 3.3 gm/dl (3.1-4.5); ALKALINE PHOSPHATASE 93 U/L (45-117); BUN 14 mg/dl (7-24); CHLORIDE 104 mmol/L (98-107); CREATININE 1.13 mg/dL (0.70-1.30); LIPASE 93 U/L (73-393); POTASSIUM 4.2 mmol/L (3.5-5.1); SGOT/AST 32 IU/L (3-35); SGPT/ALT 37 U/L (12-78); SODIUM 140 mmol/L (136-145); TOTAL PROTEIN 7.8 gm/dL (6.4-8.2)
[2018-12-11 10:08] LABS: TROPONIN I < 0.015 ng/ml (<0.045)
[2018-12-11 11:25] LABS: BILIRUBIN NEGATIVE (NEGATIVE); BLOOD NEGATIVE (NEGATIVE); CLARITY CLEAR (CLEAR); COLOR YELLOW (YELLOW); GLUCOSE NEGATIVE (NEGATIVE); KETONE NEGATIVE (NEGATIVE); LEUKO ESTERASE NEGATIVE (NEGATIVE); NITRITE NEGATIVE (NEGATIVE); PH 5.5 (5.0-9.0); UROBILINOGEN 0.2 E.U./dl (0.2-1.0)
[2018-12-11 11:48] LABS: RBC 0-2 rbc/hpf (0-2); WBC 0-2 wbc/hpf (0-5)
[2018-12-11] MEDS ORDERED: MECLIZINE HCL25 M2 PO (12:02)
== END 2018-12-11 12:21 | disposition home or self-care (01) ==
LOC: ED 09:08
PROVIDERS: Nurse Practitioner Family
DX: H81.10 Benign paroxysmal vertigo, unspecified ear (principal); R11.0 Nausea; E78.5 Hyperlipidemia, unspecified; I10 Essential (primary) hypertension; E11.40 Type 2 diabetes mellitus with diabetic neuropathy, unspecified; F17.200 Nicotine dependence, unspecified, uncomplicated; Z79.899 Other long term (current) drug therapy; Z95.5 Presence of coronary angioplasty implant and graft

== ENCOUNTER → 2018-12-18 | Outpatient (CLI) | payer OTHER ==
[~2018-12-18] MED LIST changes: +MECLIZINE HCL25 M2 PO; +Tobrex Ophth S2.5 ML OPH
== END | disposition home or self-care (01) ==
LOC: RESCLI 00:36
PROVIDERS: Student in an Organized Health Care Education/Training Program
DX: I11.0 Hypertensive heart disease with heart failure (principal); I50.32 Chronic diastolic (congestive) heart failure; I87.331 Chronic venous hypertension (idiopathic) with ulcer and inflammation of right lower extremity; I87.2 Venous insufficiency (chronic) (peripheral); E55.9 Vitamin D deficiency, unspecified; E66.01 Morbid (severe) obesity due to excess calories; E11.43 Type 2 diabetes mellitus with diabetic autonomic (poly)neuropathy; G47.30 Sleep apnea, unspecified; R42 Dizziness and giddiness; Z79.899 Other long term (current) drug therapy; Z79.82 Long term (current) use of aspirin; Z88.8 Allergy status to other drugs, medicaments and biological substances

== ENCOUNTER 2019-01-21 14:56 | Emergency (ER) | payer OTHER ==
[~2019-01-21] VITALS: Ht 185.4 cm; Wt 145.1 kg
[~2019-01-21 14:56] MED LIST changes: -Tobrex Ophth S2.5 ML OPH
[2019-01-21] MEDS ORDERED: Tobrex Ophth S2.5 ML OPH (16:08)
== END 2019-01-21 16:21 | disposition home or self-care (01) ==
LOC: ED 14:56
DX: H10.9 Unspecified conjunctivitis (principal); E11.9 Type 2 diabetes mellitus without complications; Z79.899 Other long term (current) drug therapy; Z79.84 Long term (current) use of oral hypoglycemic drugs; Z90.49 Acquired absence of other specified parts of digestive tract

== ENCOUNTER → 2019-02-12 | Outpatient (CLI) | payer OTHER ==
[~2019-02-12] MED LIST changes: +Tobrex Ophth S2.5 ML OPH
== END | disposition home or self-care (01) ==
LOC: RESCLI 01:28
DX: E66.01 Morbid (severe) obesity due to excess calories (principal); I13.10 Hypertensive heart and chronic kidney disease without heart failure, with stage 1 through stage 4 chronic kidney disease, or unspecified chronic kidney disease; I50.32 Chronic diastolic (congestive) heart failure; I87.2 Venous insufficiency (chronic) (peripheral); E11.22 Type 2 diabetes mellitus with diabetic chronic kidney disease; N18.3 Chronic kidney disease, stage 3 (moderate); G47.30 Sleep apnea, unspecified; I70.90 Unspecified atherosclerosis; E55.9 Vitamin D deficiency, unspecified; R60.0 Localized edema; R20.2 Paresthesia of skin

== ENCOUNTER → 2019-03-19 | Outpatient (CLI) | payer OTHER | END | disposition home or self-care (01) | LOC: RESCLI 01:46 | DX: E11.9 Type 2 diabetes mellitus without complications (principal); I11.0 Hypertensive heart disease with heart failure; I50.32 Chronic diastolic (congestive) heart failure; E55.9 Vitamin D deficiency, unspecified; I70.90 Unspecified atherosclerosis; R20.2 Paresthesia of skin; R42 Dizziness and giddiness; Z79.899 Other long term (current) drug therapy ==

== ENCOUNTER → 2019-05-07 | Outpatient (CLI) | payer OTHER | END | disposition home or self-care (01) | LOC: RESCLI 00:36 | DX: E11.9 Type 2 diabetes mellitus without complications (principal); I11.0 Hypertensive heart disease with heart failure; I50.32 Chronic diastolic (congestive) heart failure; I70.90 Unspecified atherosclerosis; R20.2 Paresthesia of skin; R42 Dizziness and giddiness; E55.9 Vitamin D deficiency, unspecified; E66.01 Morbid (severe) obesity due to excess calories; Z79.899 Other long term (current) drug therapy; Z88.8 Allergy status to other drugs, medicaments and biological substances ==

== ENCOUNTER → 2019-06-10 | Outpatient (CLI) | payer OTHER | END | disposition home or self-care (01) | LOC: RESCLI 01:04 | DX: S81.801D Unspecified open wound, right lower leg, subsequent encounter (principal); E11.9 Type 2 diabetes mellitus without complications; I11.0 Hypertensive heart disease with heart failure; I50.32 Chronic diastolic (congestive) heart failure; I70.90 Unspecified atherosclerosis; E55.9 Vitamin D deficiency, unspecified; R20.2 Paresthesia of skin; Z79.899 Other long term (current) drug therapy; X58.XXXD Exposure to other specified factors, subsequent encounter ==

== ENCOUNTER → 2019-07-14 | Outpatient (CLI) | payer OTHER | END | disposition home or self-care (01) | LOC: RESCLI 01:37 | DX: E11.9 Type 2 diabetes mellitus without complications (principal); I11.0 Hypertensive heart disease with heart failure; I50.32 Chronic diastolic (congestive) heart failure; I70.90 Unspecified atherosclerosis; E55.9 Vitamin D deficiency, unspecified; R20.2 Paresthesia of skin; E66.01 Morbid (severe) obesity due to excess calories; R42 Dizziness and giddiness; Z79.899 Other long term (current) drug therapy; Z88.8 Allergy status to other drugs, medicaments and biological substances ==

== ENCOUNTER → 2019-08-13 | Outpatient (CLI) | payer OTHER ==
[2019-08-13 08:50] LABS: BASO # 0.1 10*3/uL (0.0-0.1); BASO % 0.8 % (0.0-1.0); EOS # 0.4 10*3/uL (0.0-0.4); EOS % 5.4 % (1.0-4.0); HEMOGLOBIN 14.3 g/dl (14.0-18.0); LYMPH # 1.3 10*3/uL (1.3-4.4); LYMPH % 16.4 % (27.0-41.0); MEAN CELL VOLUME 89.4 fl (80.0-94.0); MEAN CORPUSCULAR HGB 29.1 pg (27.0-31.0); MEAN CORPUSCULAR HGB CONC 32.5 g/dl (33.0-37.0); MEAN PLATELET VOLUME 9.4 fl (9.6-12.3); MONO # 0.6 10*3/uL (0.1-1.0); NEUT # 5.4 10*3/uL (2.3-7.9); PLATELET COUNT AUTOMATED 211 10*3/uL (130-400); RED BLOOD COUNT 4.92 10*6/uL (4.50-5.90); RED CELL DISTRI WIDTH 13.1 % (0-14.5); WHITE BLOOD COUNT 7.8 10*3/uL (4.8-10.8)
[2019-08-13 09:19] LABS: ALBUMIN 3.4 gm/dl (3.1-4.5); ALKALINE PHOSPHATASE 92 U/L (45-117); BUN 25 mg/dl (7-24); CHLORIDE 105 mmol/L (98-107); CREATININE 1.16 mg/dL (0.70-1.30); POTASSIUM 4.1 mmol/L (3.5-5.1); SGOT/AST 33 IU/L (3-35); SGPT/ALT 38 U/L (12-78); SODIUM 138 mmol/L (136-145); TOTAL PROTEIN 8.1 gm/dL (6.4-8.2)
== END | disposition home or self-care (01) ==
LOC: LAB 08:34
PROVIDERS: Internal Medicine
DX: E11.9 Type 2 diabetes mellitus without complications (principal)

== ENCOUNTER → 2019-08-18 | Outpatient (CLI) | payer OTHER | END | disposition home or self-care (01) | LOC: RESCLI 01:43 | DX: Z23 Encounter for immunization (principal); E11.9 Type 2 diabetes mellitus without complications; I11.0 Hypertensive heart disease with heart failure; I50.32 Chronic diastolic (congestive) heart failure; I70.90 Unspecified atherosclerosis; R20.2 Paresthesia of skin; R42 Dizziness and giddiness; L03.90 Cellulitis, unspecified; Z79.84 Long term (current) use of oral hypoglycemic drugs; Z79.899 Other long term (current) drug therapy ==

== ENCOUNTER → 2019-09-03 | Outpatient (CLI) | payer OTHER ==
[2019-09-03 09:37] LABS: BASO # 0.1 10*3/uL (0.0-0.1); BASO % 0.9 % (0.0-1.0); EOS # 0.4 10*3/uL (0.0-0.4); EOS % 5.1 % (1.0-4.0); HEMATOCRIT 43.9 % (42.0-52.0); HEMOGLOBIN 14.1 g/dl (14.0-18.0); LYMPH # 1.7 10*3/uL (1.3-4.4); LYMPH % 23.5 % (27.0-41.0); MEAN CELL VOLUME 88.5 fl (80.0-94.0); MEAN CORPUSCULAR HGB 28.4 pg (27.0-31.0); MEAN CORPUSCULAR HGB CONC 32.1 g/dl (33.0-37.0); MEAN PLATELET VOLUME 9.8 fl (9.6-12.3); MONO # 0.6 10*3/uL (0.1-1.0); MONO % 7.8 % (3.0-9.0); NEUT # 4.6 10*3/uL (2.3-7.9); NEUT % 62.3 % (47.0-73.0); PLATELET COUNT AUTOMATED 225 10*3/uL (130-400); RED BLOOD COUNT 4.96 10*6/uL (4.50-5.90); RED CELL DISTRI WIDTH 13.2 % (0-14.5); WHITE BLOOD COUNT 7.4 10*3/uL (4.8-10.8)
[2019-09-03 10:05] LABS: ALBUMIN 3.4 gm/dl (3.1-4.5); ALKALINE PHOSPHATASE 70 U/L (45-117); BUN 14 mg/dl (7-24); CHLORIDE 105 mmol/L (98-107); CHOLESTEROL 97 mg/dL (<200); CREATININE 1.04 mg/dL (0.70-1.30); HDL CHOLESTEROL 35 mg/dl (40-60); LDL CHOLESTEROL 40 mg/dL (9-159); POTASSIUM 4.5 mmol/L (3.5-5.1); SGOT/AST 32 IU/L (3-35); SGPT/ALT 43 U/L (12-78); SODIUM 139 mmol/L (136-145); TRIGLYCERIDES 112 mg/dl (<150); VLDL CHOLESTEROL 22 mg/dL (6-40)
== END | disposition home or self-care (01) ==
LOC: LAB 08:49
PROVIDERS: Internal Medicine
DX: L03.90 Cellulitis, unspecified (principal); I70.90 Unspecified atherosclerosis

== ENCOUNTER → 2019-09-23 | Outpatient (CLI) | payer OTHER | END | disposition home or self-care (01) | LOC: RESCLI 01:14 | DX: Z01.89 Encounter for other specified special examinations (principal); Z13.39 Encounter for screening examination for other mental health and behavioral disorders; E11.9 Type 2 diabetes mellitus without complications; I11.0 Hypertensive heart disease with heart failure; I50.32 Chronic diastolic (congestive) heart failure; I70.90 Unspecified atherosclerosis; R20.2 Paresthesia of skin; E55.9 Vitamin D deficiency, unspecified; R42 Dizziness and giddiness; E66.01 Morbid (severe) obesity due to excess calories; Z79.84 Long term (current) use of oral hypoglycemic drugs; Z79.899 Other long term (current) drug therapy; Z71.3 Dietary counseling and surveillance; Z88.8 Allergy status to other drugs, medicaments and biological substances ==

== ENCOUNTER → 2019-10-28 | Outpatient (CLI) | payer OTHER | END | disposition home or self-care (01) | LOC: RESCLI 00:35 | DX: E11.9 Type 2 diabetes mellitus without complications (principal); I11.0 Hypertensive heart disease with heart failure; I50.32 Chronic diastolic (congestive) heart failure; E55.9 Vitamin D deficiency, unspecified; I70.90 Unspecified atherosclerosis; R20.2 Paresthesia of skin; R42 Dizziness and giddiness; Z79.899 Other long term (current) drug therapy ==

== ENCOUNTER → 2019-11-25 | Outpatient (CLI) | payer OTHER | LOC: LAB 08:17 | DX: E11.9 Type 2 diabetes mellitus without complications (principal) ==

== ENCOUNTER → 2019-12-03 | Outpatient (CLI) | payer OTHER | END | disposition home or self-care (01) | LOC: RESCLI 00:37 | DX: I11.0 Hypertensive heart disease with heart failure (principal); I50.32 Chronic diastolic (congestive) heart failure; I70.90 Unspecified atherosclerosis; E11.9 Type 2 diabetes mellitus without complications; J30.2 Other seasonal allergic rhinitis; R20.2 Paresthesia of skin; R42 Dizziness and giddiness; E55.9 Vitamin D deficiency, unspecified; G47.33 Obstructive sleep apnea (adult) (pediatric); Z79.84 Long term (current) use of oral hypoglycemic drugs; Z79.82 Long term (current) use of aspirin; Z79.899 Other long term (current) drug therapy ==

== ENCOUNTER → 2020-05-06 | Outpatient (CLI) | payer OTHER ==
[2020-05-06 08:41] LABS: BASO # 0.1 10*3/uL (0.0-0.1); BASO % 0.9 % (0.0-1.0); EOS # 0.3 10*3/uL (0.0-0.4); EOS % 3.8 % (1.0-4.0); HEMATOCRIT 42.3 % (42.0-52.0); LYMPH % 24.7 % (27.0-41.0); MEAN CELL VOLUME 86.5 fl (80.0-94.0); MEAN CORPUSCULAR HGB CONC 32.4 g/dl (33.0-37.0); MEAN PLATELET VOLUME 9.6 fl (9.6-12.3); MONO # 0.7 10*3/uL (0.1-1.0); NEUT # 5.1 10*3/uL (2.3-7.9); NEUT % 62.4 % (47.0-73.0); PLATELET COUNT AUTOMATED 192 10*3/uL (130-400); RED BLOOD COUNT 4.89 10*6/uL (4.50-5.90); RED CELL DISTRI WIDTH 13.5 % (0-14.5); WHITE BLOOD COUNT 8.1 10*3/uL (4.8-10.8)
[2020-05-06 08:56] LABS: BUN 14 mg/dl (7-24); CHLORIDE 108 mmol/L (98-107); CREATININE 1.16 mg/dL (0.70-1.30); POTASSIUM 4.3 mmol/L (3.5-5.1); SODIUM 140 mmol/L (136-145)
== END | disposition home or self-care (01) ==
LOC: LAB 08:13
PROVIDERS: Internal Medicine
DX: I50.32 Chronic diastolic (congestive) heart failure (principal); E11.9 Type 2 diabetes mellitus without complications

== ENCOUNTER → 2020-05-12 | Outpatient (CLI) | payer OTHER | END | disposition home or self-care (01) | LOC: RESCLI 04:55 | DX: G56.23 Lesion of ulnar nerve, bilateral upper limbs (principal); E66.01 Morbid (severe) obesity due to excess calories; I11.0 Hypertensive heart disease with heart failure; I50.32 Chronic diastolic (congestive) heart failure; I73.9 Peripheral vascular disease, unspecified; E78.5 Hyperlipidemia, unspecified; J30.2 Other seasonal allergic rhinitis; G62.9 Polyneuropathy, unspecified; Z79.890 Hormone replacement therapy ==

== ENCOUNTER → 2020-07-20 | Outpatient (CLI) | payer OTHER | END | disposition home or self-care (01) | LOC: RESCLI 01:07 | PROVIDERS: ATTEND Internal Medicine | DX: I73.9 Peripheral vascular disease, unspecified (principal); G62.9 Polyneuropathy, unspecified; E78.5 Hyperlipidemia, unspecified; E55.9 Vitamin D deficiency, unspecified; I12.9 Hypertensive chronic kidney disease with stage 1 through stage 4 chronic kidney disease, or unspecified chronic kidney disease; E11.22 Type 2 diabetes mellitus with diabetic chronic kidney disease; N18.30 Chronic kidney disease, stage 3 unspecified; J30.2 Other seasonal allergic rhinitis; E66.01 Morbid (severe) obesity due to excess calories; Z23 Encounter for immunization; Z68.42 Body mass index [BMI] 45.0-49.9, adult; Z79.899 Other long term (current) drug therapy; Z98.890 Other specified postprocedural states ==

== ENCOUNTER → 2020-09-30 | Outpatient (CLI) | payer OTHER ==
[2020-09-30 09:20] LABS: BASO # 0.1 10*3/uL (0.0-0.1); BASO % 0.8 % (0.0-1.0); EOS # 0.4 10*3/uL (0.0-0.4); EOS % 4.6 % (1.0-4.0); HEMATOCRIT 42.2 % (42.0-52.0); LYMPH # 2.1 10*3/uL (1.3-4.4); LYMPH % 26.4 % (27.0-41.0); MEAN CELL VOLUME 87.2 fl (80.0-94.0); MEAN CORPUSCULAR HGB 27.5 pg (27.0-31.0); MEAN CORPUSCULAR HGB CONC 31.5 g/dl (33.0-37.0); MEAN PLATELET VOLUME 10.1 fl (9.6-12.3); MONO # 0.6 10*3/uL (0.1-1.0); NEUT # 4.8 10*3/uL (2.3-7.9); NEUT % 60.9 % (47.0-73.0); PLATELET COUNT AUTOMATED 225 10*3/uL (130-400); RED BLOOD COUNT 4.84 10*6/uL (4.50-5.90); RED CELL DISTRI WIDTH 13.2 % (0-14.5); WHITE BLOOD COUNT 7.8 10*3/uL (4.8-10.8)
[2020-09-30 09:33] LABS: ALBUMIN 3.3 gm/dl (3.1-4.5); ALKALINE PHOSPHATASE 86 U/L (45-117); BUN 12 mg/dl (7-24); CHLORIDE 108 mmol/L (98-107); CHOLESTEROL 87 mg/dL (<200); CREATININE 0.99 mg/dL (0.70-1.30); HDL CHOLESTEROL 38 mg/dl (40-60); LDL CHOLESTEROL 25 mg/dL (9-159); POTASSIUM 4.2 mmol/L (3.5-5.1); SGOT/AST 33 IU/L (3-35); SGPT/ALT 39 U/L (12-78); SODIUM 139 mmol/L (136-145); TOTAL PROTEIN 7.5 gm/dL (6.4-8.2); TRIGLYCERIDES 121 mg/dl (<150); VLDL CHOLESTEROL 24 mg/dL (6-40)
[2020-09-30 10:04] LABS: VITAMIN D, 25-HYDROXY 29.6 ng/mL (30-100)
== END | disposition home or self-care (01) ==
LOC: LAB 08:25
PROVIDERS: Hospitalist; ATTEND Student in an Organized Health Care Education/Training Program
DX: I10 Essential (primary) hypertension (principal); E11.9 Type 2 diabetes mellitus without complications; E55.9 Vitamin D deficiency, unspecified; E78.5 Hyperlipidemia, unspecified; G62.9 Polyneuropathy, unspecified

== ENCOUNTER → 2020-11-01 | Outpatient (CLI) | payer OTHER ==
[~2020-11-01] MED LIST changes: +AUGMENTIN 875875 MG PO
== END | disposition home or self-care (01) ==
LOC: RESCLI 03:02
PROVIDERS: ATTEND Student in an Organized Health Care Education/Training Program
DX: I11.0 Hypertensive heart disease with heart failure (principal); I50.32 Chronic diastolic (congestive) heart failure; G62.9 Polyneuropathy, unspecified; J30.2 Other seasonal allergic rhinitis; G56.23 Lesion of ulnar nerve, bilateral upper limbs; I73.9 Peripheral vascular disease, unspecified; E78.5 Hyperlipidemia, unspecified; E66.01 Morbid (severe) obesity due to excess calories; E11.9 Type 2 diabetes mellitus without complications; E55.9 Vitamin D deficiency, unspecified; Z68.42 Body mass index [BMI] 45.0-49.9, adult; Z79.899 Other long term (current) drug therapy; Z79.84 Long term (current) use of oral hypoglycemic drugs

== ENCOUNTER → 2021-01-13 | Outpatient (CLI) | payer OTHER | END | disposition home or self-care (01) | LOC: RESCLI 14:16 | PROVIDERS: ATTEND Internal Medicine | DX: R42 Dizziness and giddiness (principal); E11.9 Type 2 diabetes mellitus without complications; I11.0 Hypertensive heart disease with heart failure; I50.32 Chronic diastolic (congestive) heart failure; I73.9 Peripheral vascular disease, unspecified; J30.2 Other seasonal allergic rhinitis; G62.9 Polyneuropathy, unspecified; E55.9 Vitamin D deficiency, unspecified; E78.5 Hyperlipidemia, unspecified; Z09 Encounter for follow-up examination after completed treatment for conditions other than malignant neoplasm; Z79.82 Long term (current) use of aspirin; Z79.899 Other long term (current) drug therapy; Z98.890 Other specified postprocedural states ==

== ENCOUNTER → 2021-01-24 | Outpatient (CLI) | payer OTHER ==
[2021-01-24 14:05] LABS: BASO % 0.6 % (0.0-1.0); EOS # 0.3 10*3/uL (0.0-0.4); EOS % 4.1 % (1.0-4.0); HEMATOCRIT 44.1 % (42.0-52.0); LYMPH # 1.6 10*3/uL (1.3-4.4); LYMPH % 22.4 % (27.0-41.0); MEAN CELL VOLUME 86.3 fl (80.0-94.0); MEAN CORPUSCULAR HGB 27.8 pg (27.0-31.0); MEAN CORPUSCULAR HGB CONC 32.2 g/dl (33.0-37.0); MONO # 0.5 10*3/uL (0.1-1.0); MONO % 6.7 % (3.0-9.0); NEUT # 4.6 10*3/uL (2.3-7.9); NEUT % 65.9 % (47.0-73.0); PLATELET COUNT AUTOMATED 205 10*3/uL (130-400); RED BLOOD COUNT 5.11 10*6/uL (4.50-5.90); RED CELL DISTRI WIDTH 13.4 % (0-14.5)
[2021-01-24 14:37] LABS: ALBUMIN 3.6 gm/dl (3.1-4.5); ALKALINE PHOSPHATASE 85 U/L (45-117); BUN 13 mg/dl (7-24); CHLORIDE 107 mmol/L (98-107); CHOLESTEROL 91 mg/dL (<200); HDL CHOLESTEROL 37 mg/dl (40-60); LDL CHOLESTEROL 17 mg/dL (9-159); POTASSIUM 4.2 mmol/L (3.5-5.1); SGOT/AST 34 IU/L (3-35); SGPT/ALT 42 U/L (12-78); SODIUM 139 mmol/L (136-145); TOTAL PROTEIN 7.7 gm/dL (6.4-8.2); TRIGLYCERIDES 184 mg/dl (<150); VLDL CHOLESTEROL 37 mg/dL (6-40)
[2021-01-25 12:07] LABS: CREATININE,URINE 87.6 mg/dL (Not Estab.); MICRO ALBUMIN/CRE RATIO <3 (0-29)
== END | disposition home or self-care (01) ==
LOC: LAB 13:38
PROVIDERS: Internal Medicine; ATTEND Internal Medicine
DX: E11.9 Type 2 diabetes mellitus without complications (principal); E55.9 Vitamin D deficiency, unspecified; E78.5 Hyperlipidemia, unspecified

== ENCOUNTER → 2021-01-31 | Outpatient (CLI) | payer OTHER | END | disposition home or self-care (01) | LOC: RESCLI 00:40 | PROVIDERS: ATTEND Student in an Organized Health Care Education/Training Program | DX: I11.0 Hypertensive heart disease with heart failure (principal); I50.32 Chronic diastolic (congestive) heart failure; E11.9 Type 2 diabetes mellitus without complications; J30.2 Other seasonal allergic rhinitis; I73.9 Peripheral vascular disease, unspecified; G62.9 Polyneuropathy, unspecified; E78.5 Hyperlipidemia, unspecified; R42 Dizziness and giddiness; E55.9 Vitamin D deficiency, unspecified; Z79.899 Other long term (current) drug therapy; Z79.84 Long term (current) use of oral hypoglycemic drugs; Z98.890 Other specified postprocedural states ==

== ENCOUNTER → 2021-05-05 | Outpatient (CLI) | payer OTHER ==
[~2021-05-05] MED LIST changes: +ASPIRIN ADULT L81 M1 PO; +CETIRIZINE10 MG PO; +DOXYCYCLINE100 M3 PO; +FLONASE ALLERG9.9 ML NAS; +JANUVIA25 MG PO; +LASIX20 MG PO; +LIPITOR10 MG PO; +PEPCID20 MG PO; +PLAVIX75 M1 PO; +POTASSIUM CHLO10 MEQ PO
== END | disposition home or self-care (01) ==
LOC: RESCLI 01:04
PROVIDERS: ATTEND Internal Medicine
DX: I11.0 Hypertensive heart disease with heart failure (principal); I50.32 Chronic diastolic (congestive) heart failure; J30.2 Other seasonal allergic rhinitis; E11.9 Type 2 diabetes mellitus without complications; I73.9 Peripheral vascular disease, unspecified; G62.9 Polyneuropathy, unspecified; E78.5 Hyperlipidemia, unspecified; E55.9 Vitamin D deficiency, unspecified; R42 Dizziness and giddiness; K21.9 Gastro-esophageal reflux disease without esophagitis; Z79.899 Other long term (current) drug therapy; Z98.890 Other specified postprocedural states; Z79.82 Long term (current) use of aspirin

== ENCOUNTER → 2021-06-05 | Outpatient (CLI) | payer OTHER | END | disposition home or self-care (01) | LOC: CARD 00:06 | PROVIDERS: ATTEND Internal Medicine Cardiovascular Disease | DX: R06.02 Shortness of breath (principal); I10 Essential (primary) hypertension; I35.0 Nonrheumatic aortic (valve) stenosis; E11.9 Type 2 diabetes mellitus without complications ==

== ENCOUNTER 2021-06-09 09:06 | Emergency (ER) | payer OTHER ==
[~2021-06-09] VITALS: Ht 185.4 cm; Wt 158.8 kg
[~2021-06-09 09:06] MED LIST changes: -DOXYCYCLINE100 M3 PO
[2021-06-09] MEDS ORDERED: DOXYCYCLINE100 M3 PO (09:25)
== END 2021-06-09 09:21 | disposition home or self-care (01) ==
LOC: ED 09:06
DX: S81.802A Unspecified open wound, left lower leg, initial encounter (principal); I87.8 Other specified disorders of veins; X58.XXXA Exposure to other specified factors, initial encounter; Y93.89 Activity, other specified; Y92.89 Other specified places as the place of occurrence of the external cause; Y99.8 Other external cause status

== ENCOUNTER → 2021-06-26 | Outpatient (CLI) | payer OTHER ==
[~2021-06-26] MED LIST changes: +DOXYCYCLINE100 M3 PO
== END | disposition home or self-care (01) ==
LOC: COVID19 00:04
PROVIDERS: ATTEND Nurse Practitioner Family
DX: U07.1 COVID-19 (principal)

== ENCOUNTER 2022-01-29 09:30 | Emergency (ER) | payer OTHER ==
[~2022-01-29] VITALS: Ht 185.4 cm; Wt 156.5 kg
[2022-01-29 10:46] LABS: BASO # 0.1 10*3/uL (0.0-0.1); EOS # 0.3 10*3/uL (0.0-0.4); EOS % 4.3 % (1.0-4.0); HEMATOCRIT 41.2 % (42.0-52.0); LYMPH # 1.4 10*3/uL (1.3-4.4); LYMPH % 20.4 % (27.0-41.0); MEAN CELL VOLUME 85.1 fl (80.0-94.0); MEAN CORPUSCULAR HGB 27.9 pg (27.0-31.0); MEAN CORPUSCULAR HGB CONC 32.8 g/dl (33.0-37.0); MEAN PLATELET VOLUME 9.7 fl (9.6-12.3); MONO # 0.5 10*3/uL (0.1-1.0); MONO % 7.2 % (3.0-9.0); NEUT # 4.5 10*3/uL (2.3-7.9); NEUT % 66.8 % (47.0-73.0); PLATELET COUNT AUTOMATED 213 10*3/uL (130-400); RED BLOOD COUNT 4.84 10*6/uL (4.50-5.90); RED CELL DISTRI WIDTH 13.3 % (0-14.5); WHITE BLOOD COUNT 6.7 10*3/uL (4.8-10.8)
[2022-01-29 11:20] LABS: ALKALINE PHOSPHATASE 77 U/L (45-117); BUN 16 mg/dl (7-24); CHLORIDE 106 mmol/L (98-107); CREATININE 1.07 mg/dL (0.70-1.30); POTASSIUM 4.1 mmol/L (3.5-5.1); SGOT/AST 29 IU/L (3-35); SGPT/ALT 34 U/L (12-78); SODIUM 137 mmol/L (136-145); URIC ACID 5.5 mg/dL (3.5-7.2)
== END 2022-01-29 13:01 | disposition home or self-care (01) ==
LOC: ED 09:30
PROVIDERS: Emergency Medicine
DX: M79.672 Pain in left foot (principal); Z79.899 Other long term (current) drug therapy; Z90.49 Acquired absence of other specified parts of digestive tract; Z98.890 Other specified postprocedural states

== ENCOUNTER 2022-02-20 15:02 | Emergency (ER) | payer OTHER ==
[~2022-02-20] VITALS: Ht 177.8 cm; Wt 99.8 kg
[2022-02-20] MEDS ORDERED: CYCLOBENZAPRINE10 MG PO (17:25)
== END 2022-02-20 17:39 | disposition home or self-care (01) ==
LOC: ED 15:02
DX: M54.50 Low back pain, unspecified (principal); Z79.899 Other long term (current) drug therapy; Z90.49 Acquired absence of other specified parts of digestive tract; Z98.890 Other specified postprocedural states